=== PATIENT | female | born 1935 | race Caucasian/White ===

== ENCOUNTER 2016-06-23 10:30 | Observation (INO) | payer MEDICARE, OTHER ==
[2016-06-23] MEDS ORDERED: diPHENhydraMINE PO* 25 MG ONE (11:44)
[2016-06-23] MEDS ORDERED: Diazepam TAB(*) 5 MG ONE (11:44)
[2016-06-23] MEDS ORDERED: fentaNYL* 50 MCG/ML 2 ML VIAL (100 MCG VIAL) ONE (11:55)
[2016-06-23] MEDS ORDERED: Iohexol 350 (CONTRAST) 200 ML MDV IV ONE ×2 (11:55→12:48)
[2016-06-23] MEDS ORDERED: Midazolam* 1 MG/ML 5 ML VIAL (5 MG) ONE (11:55)
[2016-06-23] MEDS ORDERED: Heparin 2 UNITS/ML IVPREMIX* 3,000 ML IV ONE (11:56)
[2016-06-23] MEDS ORDERED: Lidocaine 1% INJ* 10 MG/ML 30 ML SDV ONE (11:56)
[2016-06-23] MEDS ORDERED: nitroGLYCERIN DRIP* 250 ML ONE (12:48)
[2016-06-23] MEDS ORDERED: Ticagrelor* 90 MG TAB PO ONE (13:16)
[2016-06-23] MEDS ORDERED: Aspirin Low Dose CHEW TAB* 81 MG ONE (13:18)
[2016-06-23] MEDS ORDERED: Atropine SYRINGE* 0.1 MG/ML 10 ML SYRINGE (1 MG) ONE (13:34)
[2016-06-23] MEDS ORDERED: Heparin(*) 1000 UNIT/ML 10 ML VIAL CATH LAB IV ONE (13:34)
[2016-06-23] MEDS ORDERED: Nitroglycerin TAB 0.4 MG* 0.4 MG TAB SL PRN (13:50)
[2016-06-23] MEDS ORDERED: NS 0.9% 1000 ML* 1,000 ML IV SCH (14:00)
[2016-06-23] MEDS ORDERED: Midazolam* 1 MG/ML 2 ML VIAL (2 MG) IV ONE (16:00)
[2016-06-23] MEDS ORDERED: ALPRAZolam TAB* 0.25 MG PO PRN (17:21)
[2016-06-23] MEDS: Ticagrelor* 90 MG TAB PO SCH (21:07)
[2016-06-24 06:03] LABS: Hematocrit 39 % (35-47); Hemoglobin 12.6 g/dl (12.0-16.0); Mean Corpuscular HGB Conc 32 g/dl (31-36); Mean Corpuscular Hemoglobin 25 pg (27-31); Mean Corpuscular Volume 79 fL (80-97); Mean Platelet Volume 9 um3 (7.4-10.4); Red Blood Count 4.96 10^6/ul (4.0-5.4); Red Cell Distribution Width 16 % (10.5-15); White Blood Count 19.7 10^3/ul (3.5-10.8)
[2016-06-24 06:16] LABS: BUN/Creatinine Ratio 21.4 (8-20); Calcium 9.2 mg/dL (8.6-10.3); EGFR African American 134.6 (>60); EGFR Non-African American 104.7 (>60); Potassium 3.4 mmol/L (3.5-5.0)
[2016-06-24] MEDS ORDERED: Aspirin EC Low Dose* 81 MG TAB.EC PO SCH (09:00)
[2016-06-24] MEDS ORDERED: Atorvastatin* 20 MG TAB PO SCH (09:00)
[2016-06-24] MEDS ORDERED: amLODIPine TAB* 5 MG PO SCH (09:00)
[2016-06-24] MEDS ORDERED: Atenolol TAB* 25 MG PO SCH (09:00)
[2016-06-24] MEDS: Ticagrelor* 90 MG TAB PO SCH (09:01)
[2016-06-24 10:11] VITALS: BP 108/45
--- NOTE | 2016-06-24 12:29 | CATH ---
CC: Dr. Donald Fay, [place], [place]. CARDIAC CATHETERIZATION: DATE OF : 37. DATE OF VISIT: 06/23/16. PROCEDURE: Cardiac catheterization including left heart catheterization, coronary angiography, left ventriculogram. The patient is a 80-year-old female with a history of hypertension and diabetes, who has been experi encing anginal type chest pain for approximately 2 months. She was admitted to [facility] in April with typical anginal symptoms. She underwent a stress test, which showed a mild to mod erate area of ischemia to her lateral wall. The patient was started on anti-ischemic medications an d was seen in followup. I saw the patient last week. He continued to have chest pain with exertion , typical of angina. Cardiac catheterization was recommended. DESCRIPTION OF PROCEDURE: The patient was brought to the cardiac catheterization lab in a fasting s rollins. Informed consent have been obtained prior to procedure. All labs were reviewed. The patient was placed supine in the catheterization table. Both femoral areas were cleaned and draped in usual fashion. 1% lidocaine was used for local anesthesia. The right femoral artery was entered by a mo dified Seldinger technique and a 6 Iraqi sheath introducer was placed. The patient underwent a lef t ventriculogram coronary angiography using a 6 Iraqi pigtail catheter, 6 Iraqi JL4 catheter, and a 6 Iraqi JR4 catheter. At the end of the procedure, the patient went on to do an angioplasty and stenting of her left circumflex artery. Please see Dr. Edmonds' dictation for those details. The pa tient tolerated the procedure well with no complications. A total of 65 mL of Omnipaque dye was used . A total of 2 minutes of floral time was used. FINDINGS: 1. Hemodynamics, central aortic blood pressure 149/68 with a mean of 105, left ventricul ar pressure 150/5 with an end diastolic pressure of 18. 2. Left ventriculogram. Left ventricle was normal in size and systolic function. Estimated ejectio n fraction 65%. There were no focal wall motion abnormalities. There was 1+ mitral regurgitation. Aortic valve and ascending aorta appeared normal. 3. Coronary arteries. 1. Left main: The left main was normal in size. It trifurcated into the LAD, ramus artery and cir cumflex artery. The distal LAD had an eccentric 20% stenosis. 2. Left anterior descending artery. The LAD was normal in size. It gave off one diagonal vessel. There was no significant stenosis. 3. Ramus artery. The ramus artery was a moderate sized vessel. There is no evidence of stenosis. Left circumflex artery: The circumflex artery was a large dominant vessel, given off the PDA. It h ad 3 obtuse marginal branches. The proximal left circumflex artery had an eccentric 95% stenosis. The remainder of the vessel is without disease. Right coronary. The RCA was a small nondominant vessel. The mid portion of the right coronary maureen ry had an eccentric 60% stenosis. There is no other evidence of disease. IMPRESSION: 1. Normal LV size with systolic function. 2. Critical 95% stenosis to the proximal left circumflex artery. 3. Eccentric 60% stenosis to the mid right coronary artery. RECOMMENDATION: The patient will undergo angioplasty and stenting to the left circumflex artery. T he patient will be seen in followup. [id number]/[facility] #: [id number]
--- NOTE | 2016-06-24 21:52 | DS ---
DISCHARGE SUMMARY: DATE OF ADMISSION: 06/23/16 DATE OF DISCHARGE: 06/24/16 PROCEDURE: Cardiac catheterization with stent implantation to her left circumflex artery. DISPOSITION ON DISCHARGE: Home. HISTORY OF PRESENT ILLNESS: The patient is a 80-year-old woman with a history of diabetes, who was having anginal-type chest pain. The patient had an abnormal stress test in April. The patient was placed on maximum medical therapy. Despite that, the patient continued to have chest pain with exertion. Cardiac catheterization was recommended, please see my admission history and physical for details of her presentation and presentation of medications. SUMMARY OF HOSPITAL COURSE: The patient was brought to the cardiac catheterization lab for cardiac catheterization. The cardiac catheterization demonstrated that her left ventriculogram was normal in size and systolic function. She had 1+ mitral regurgitation. Coronary arteries demonstrated a critical stenosis of her proximal left circumflex artery, had a 95% stenosis. The patient had a 60% stenosis to her mid right coronary artery. The right coronary artery was a small nondominant vessel. There is no other coronary artery disease. The patient underwent stent implantation to her left circumflex artery. She had a 4 mm x 12 mm drug-eluting stent placed by Dr. Yola Edmonds, please see his report for details of her procedure. The patient was observed overnight. She had no complications overnight. The patient is awake, alert, and oriented. She has no complaints. The patient will be discharged home. PHYSICAL EXAMINATION: Height is 5 feet 2 inches, weight 205 pounds. Heart rate is 93, blood pressure 108/54, respiratory rate is 24, oxygen saturation 97 % on room air, temperature 98.3. Carotids are 2+ without bruits. Cardiac Exam : S1 and S2 without any murmurs, rubs, or gallops. Lungs: Clear to auscultation. There is no dullness to percussion. Extremities: Show no edema. She has 2+ pulses in her dorsalis pedis and popliteal bilaterally. Her cardiac cath shows a moderate-sized hematoma in her skin. Her artery itself has no bruit on exam. She has normal pulses. LABORATORY DATA: Chemistries within normal limits. BUN 12, creatinine 0.5. White count shows 19.7, hemoglobin and hematocrit are stable at 12 and 39, platelet count 248. DISPOSITION: The patient will be discharged home. DISCHARGE MEDICATIONS: 1. Aspirin 81 mg a day. 2. Atenolol 25 mg b.i.d. 3. Atorvastatin 40 mg once a day. 4. Nitroglycerin p.r.n. 5. Brilinta 90 mg b.i.d. 6. Metformin 1000 mg b.i.d. 7. Januvia 100 mg daily. 8. Losartan 50 mg daily. 9. Amlodipine 5 mg a day. 10. Nystatin powder as directed. 11. Omeprazole 20 mg a day. ALLERGIES: To PENICILLIN. FOLLOWUP: The patient has a followup appointment with me at [facility] on July 03 at 11:15 in the morning. CC: Dr. Yola Edmonds; [facility] [id number]/[facility] #: [id number] [facility]
--- NOTE | 2016-06-25 01:56 | CATH ---
STENT REPORT: DATE OF PROCEDURE: 06/23/16 - ROOM #ICU-12 PRIMARY CARE PHYSICIANS: Dr. Fay in [place], Wilner Chua MD. PROCEDURE: Diagnostic catheterization by Dr. Chua, stent placement circumflex Dr. Edmonds on 06/23/16, 4.0 x 12 Synergy drug-eluting stent, Angio-Seal right common femoral artery. HISTORY: A 80-year-old woman with unstable angina, stress imaging with inferolateral ischemia. Diagnostic cath by Dr. Chua demonstrated high-grade proximal circumflex stenosis. I was asked to perform intervention. INTERVENTION MEDICATIONS: 1. Heparin 6000 units IV. 2. Brilinta 180 mg p.o. 3. Aspirin 81 mg p.o. 4. Atropine 1 mg IV. GUIDING CATHETER: A 6-FL BU 3.5, wire 14 BMW used to deploy a 4.0 x 12 Synergy drug-eluting stent, proximal circumflex 13 atmospheres at 30 seconds. After stent deployment, she had transient bradycardia and hypotension concomitant with slow flow in the SA kingsley artery, which normalized with volume and atropine. HEMODYNAMICS: For the diagnostic portion, see Dr. Chua's report. Final noninvasive pressure 112/66. ANGIOGRAPHY: For the diagnostic portion, see Dr. Chua's report. The left main has an inferior distal 30% stenosis. The circumflex is large, codominant, has a proximal 90% to 95% stenosis before a large bifurcated marginal branch, several posterolaterals and the circumflex PDA. The SA kingsley artery arises just proximal to the stenosis. After stent placement, there is no residual stenosis, there is DIEGO-3 flow, there is slow flow in the SA kingsley artery. CONCLUSION: Successful drug-eluting stent placement in the proximal circumflex , excellent angiographic result with drug-eluting stent placement. Angio-Seal right common femoral artery, requiring manual compression because of continued oozing. Coronary angiogram showed a somewhat low entry point, but above the bifurcation. CC: Dr. Fay; Wilner Cuha MD* [id number]/[facility] #: [id number] [facility]
== END 2016-06-24 10:50 | disposition home or self-care (01) ==
LOC: CHICATH 10:30 → ICU 14:26
PROVIDERS: ADMIT Specialist; ATTEND Specialist
DX: I25.110 Atherosclerotic heart disease of native coronary artery with unstable angina pectoris (principal); I10 Essential (primary) hypertension; E11.9 Type 2 diabetes mellitus without complications; Z79.84 Long term (current) use of oral hypoglycemic drugs; Z88.0 Allergy status to penicillin; R94.31 Abnormal electrocardiogram [ECG] [EKG]; I25.9 Chronic ischemic heart disease, unspecified
CPT/HCPCS: 36415; 80048; 85025; 87641; 93005; 93458; A9270-GY; C1760; C1769; C1876; C1887; C9600-LC; G0378; J0461; J1644; J2250; J3010

== ENCOUNTER 2017-05-01 06:15 | Inpatient (IN) | payer MEDICARE, OTHER ==
[2017-05-01 07:38] LABS: ABS Basophils 0.1 10^3/ul (0-0.2); ABS Eosinophils 0.4 10^3/ul (0-0.6); ABS Lymphocytes 2.4 10^3/ul (1.0-4.8); ABS Monocytes 0.9 10^3/ul (0-0.8); ABS Neutrophils 10.3 10^3/ul (1.5-7.7); ABS Nucleated RBC 0 10^3/ul; Eosinophil % 2.8 % (0-6); Hematocrit 32 % (35-47); Hemoglobin 10.4 g/dl (12.0-16.0); Mean Corpuscular HGB Conc 32 g/dl (31-36); Mean Corpuscular Hemoglobin 26 pg (27-31); Mean Corpuscular Volume 81 fL (80-97); Mean Platelet Volume 9 um3 (7.4-10.4); Nucleated Red Blood Cells % 0; Platelet Count 279 10^3/ul (150-450); Red Blood Count 3.95 10^6/ul (4.0-5.4); Red Cell Distribution Width 15 % (10.5-15); White Blood Count 14.1 10^3/ul (3.5-10.8)
[2017-05-01 07:47] LABS: INR 0.92 (0.77-1.02)
[2017-05-01 07:51] LABS: EGFR Non-African American 91.2 (>60)
[2017-05-01] MEDS ORDERED: NS 0.9% 1000 ML* 1,000 ML IV ONE (09:00)
--- NOTE | 2017-05-01 09:21 | RAD ---
INDICATION: 81-year-old with vaginal bleeding COMPARISON: None TECHNIQUE: Longitudinal and transverse transvaginal scans of the pelvis were obtained. FINDINGS: Uterus: The uterus is mildly enlarged measuring 10.8 x 5.1 x 5.9 cm. Endometrial thickness: The endometrium is thickened with complex fluid. Measurements of 3.7 cm are obtained Free fluid: There is no significant free fluid . Ovaries: Neither ovary is identified as a discrete structure. This is likely age-related. There is no adnexal mass identified. Other: None IMPRESSION: MILDLY ENLARGED UTERUS WITH MARKEDLY THICKENED ENDOMETRIUM. SUGGEST GYNECOLOGIC REFERRAL FOR FURTHER EVALUATION OF POSTMENOPAUSAL BLEEDING.
[2017-05-01 09:45] LABS: Hematocrit 29 % (35-47); Hemoglobin 9.2 g/dl (12.0-16.0); Mean Corpuscular HGB Conc 32 g/dl (31-36); Mean Corpuscular Hemoglobin 26 pg (27-31); Mean Corpuscular Volume 82 fL (80-97); Mean Platelet Volume 9 um3 (7.4-10.4); Platelet Count 227 10^3/ul (150-450); Red Blood Count 3.55 10^6/ul (4.0-5.4); Red Cell Distribution Width 15 % (10.5-15); White Blood Count 12.3 10^3/ul (3.5-10.8)
[2017-05-01] MEDS ORDERED: Dextrose 50% Syringe 50 ML* 25 GM/50 ML SYRINGE IV PUSH PRN (10:58)
--- NOTE | 2017-05-01 12:26 | PN ---
Progress Note - Progress Note Date of Service: 05/01/17 Note: 81 yo with sudden onset of vaginal bleeding . no too heavy yesterday but heavy today. seen at [place] and sent here for stabilization d/w ER and will need to be stabilized on medical service. u/s reviewed and endometrium thickened would start megace and do endometrial biopsy as soon as able once she is stabilized.\ will d/w medical service Jimmy Crowley mD
[2017-05-01] MEDS ORDERED: Megestrol TAB* 40 MG PO ONE (13:38)
[2017-05-01] MEDS: Insulin LISPRO* 1 UNITS UNIT SUBCUT SCH ×3 (13:41→20:14)
--- NOTE | 2017-05-01 14:45 | RAD ---
HISTORY: Follow-up history of DVT TECHNIQUE: Multiple transverse and longitudinal ultrasound images were obtained of the veins of the right lower extremity using grayscale, color Doppler, and spectral Doppler imaging with and without compression and with augmentation. FINDINGS: VEINS: The common femoral vein, deep femoral vein, femoral vein and popliteal vein are compressible throughout their course, with normal flow on color Doppler imaging and normal response to augmentation on spectral Doppler imaging. SOFT TISSUES: Grossly normal. No large popliteal fossa cyst was identified. IMPRESSION: No sonographic evidence of deep vein thrombosis.
--- NOTE | 2017-05-01 15:15 | HP ---
CC: Dr. Magan Fay * HISTORY AND PHYSICAL: DATE OF ADMISSION: 05/01/17 PRIMARY CARE PROVIDER: Dr. Magan Fay. CHIEF COMPLAINT: Vaginal bleeding. HISTORY OF PRESENT ILLNESS: Ms. Cuevas is a 81-year-old female who has a history of type 2 diabetes, coronary artery disease status post drug-eluting stent placement in June 2016, hypertension, and hyperlipidemia who presents to the emergency room with complaints of vaginal bleeding. The patient initially presented to [facility] and was transferred to [facility] for further evaluation and management. The patient has a slightly difficult time providing history to me at this point. Her son states that approximately 3 days ago, she began to complain of vaginal bleeding. The patient is able to tell me that she has been needing to use 4 to 5 pads per day. These are generally saturated. In addition, she has been passing blood clots. In the emergency room, the patient reportedly passed a blood clot the size of a softball. The patient underwent transvaginal ultrasound and at that time started to develop lightheaded-ness and shortness of breath. The patient states lightheadedness has now improved, but she does have some mild shortness of breath still. The patient denies any abdominal pain. She denies any cramping. She denies any nausea or vomiting. She denies any chest pain. She does state that she has felt chills since being in the emergency room. Of note , the patient is on both, full strength aspirin and Brilinta secondary to her drug-eluting stent placed in June of this year. The patient denies any recent NSAID use. PAST MEDICAL HISTORY: 1. Coronary artery disease, status post drug-eluting stent, June 2016. 2. Type 2 diabetes. 3. Hypertension. 4. Hyperlipidemia. PAST SURGICAL HISTORY: None. MEDICATIONS: 1. Aspirin 325 mg p.o. daily. 2. Amlodipine 5 mg p.o. daily. 3. Lipitor 80 mg p.o. daily. 4. Atenolol 25 mg p.o. twice daily. 5. Nystatin powder, applied topically 3 times daily. 6. Nitroglycerin 0.4 mg q.5 minutes p.r.n. chest pain. 7. Losartan 50 mg p.o. daily. 8. Brilinta 90 mg p.o. twice daily. 9. Januvia 100 mg p.o. daily. 10. Metformin 1000 mg p.o. twice daily. ALLERGIES: PENICILLIN. FAMILY HISTORY: Her mom at the age of 68 of an DE. Dad in his early 70s of an DE. SOCIAL HISTORY: The patient is a lifelong nonsmoker. She does not drink alcohol. She worked doing housekeeping. She is . She has 4 children. She indicates that her son, Evaristo Cordero, phone number [phone], is her healthcare proxy. REVIEW OF SYSTEMS: A complete 11-system review of systems is obtained. Pertinent positives and negatives are as per HPI. In addition, the patient complains of loose stools over the last couple of days. PHYSICAL EXAMINATION GENERAL: The patient is a well-developed, obese, elderly female, sitting up in the stretcher, in no acute distress. VITAL SIGNS: Blood pressure 115/101, pulse 99, respirations 18, temp 98.2, O2 sat 96% on room air. HEENT: Pupils are equal, they are round. Extraocular muscles are intact. Oropharynx is clear. Oral mucosa is moist. The patient wears upper and lower dentures. There is no submandibular, cervical, or supraclavicular adenopathy. Thyroid is not enlarged. No thyroid nodules are noted. PULMONARY: Lungs are clear to auscultation bilaterally. CARDIAC: Normal S1, S2. Regular rate and rhythm. I do not appreciate any murmurs. The right calf appears to be more swollen compared to the left. ABDOMEN: Bowel sounds present. Abdomen is soft, nontender, nondistended. MUSCULOSKELETAL: There is no cyanosis or clubbing of the digits. There is full active range of motion of all 4 extremities. NEUROLOGIC: Cranial nerves II through XII are grossly intact. Sensation is intact to light touch throughout. Strength is 5/5 to both upper and lower extremities bilaterally. SKIN: Warm and dry. There are no rashes. PSYCH: The patient is alert. She is oriented x3. Affect is appropriate. LABORATORY DATA: WBC 12.3, hemoglobin 9.2, hematocrit 29, platelets 227,000. INR 0.92. Sodium 140, potassium 3.9, chloride 106, CO2 of 24, BUN 16, creatinine 0.63, glucose 157, calcium 9.3. Bilirubin 0.4, AST 11, ALT 9, alk phos 91. CRP 9.16. Albumin 3.9. Transvaginal ultrasound reveals a mildly enlarged uterus with markedly thickened endometrium. ASSESSMENT AND PLAN: Ms. Cuevas is a 81-year-old female with history of coronary artery disease, type 2 diabetes, hypertension, and hyperlipidemia, who is on both full strength aspirin and Brilinta since June of this year, who presents to emergency room with complaints of significant vaginal bleeding, now associated with lightheadedness and shortness of breath. 1. Vaginal bleeding. The patient will need to be evaluated by Gynecology. Dr. Crowley has been called by the emergency room and will see the patient in consultation. The patient will have her Brilinta and aspirin held at this point due to the significant bleeding. 2. Acute blood loss anemia. The patient's hemoglobin on 04/15/17 was normal at 13.1. At 7:15 on the day of admission, the patient's hemoglobin was 10.4 and at 9:22 on the day of admission, the patient's hemoglobin had dropped to 9.2. The patient will be receiving 2 units of packed red blood cells as ordered by the emergency room physician. A followup hemoglobin and hematocrit will be obtained at 1 p.m. Subsequent hemoglobin and hematocrits will be obtained every 6 hours. 3. Coronary artery disease. The patient is chest pain free at this point. She will continue on her Lipitor; however, at this point, I am holding her beta - tamika, her aspirin, and her Brilinta due to her significant bleeding and complaints of lightheadedness and intermittent relative hypotension. The patient will need to be monitored for any signs of active coronary artery disease. 4. Type 2 diabetes. The patient's metformin and Januvia will be held for now. She will be placed on a Lispro sliding scale with fingersticks a.c. and h.s. 5. Hypertension. The patient's blood pressure at this point is under acceptable control. I am holding all of her antihypertensives; however, if she begins to become hypertensive, we will consider adding back her beta-tamika first. 6. Hyperlipidemia. Continue Lipitor. 7. DVT prophylaxis. According to the Adult Thrombosis Prophylaxis Risk Factor Assessment Guide, the patient has a total risk factor score of 4, making her a high risk. SCDs alone will be utilized as DVT prophylaxis given her vaginal bleeding. 8. Code status is full and, again, the patient indicates that her son, Evaristo Cordero, is her healthcare proxy. TIME SPENT: 65 minutes were spent admitting this patient. [id number]/[facility] #: [id number] [place]
[2017-05-01] MEDS: Megestrol TAB* 40 MG PO SCH ×2 (17:19→20:15)
[2017-05-01] MEDS: NS 0.9% 1000 ML* 1,000 ML IV SCH (19:57)
[2017-05-01 21:19] LABS: Hematocrit 32 % (35-47); Hemoglobin 10.8 g/dl (12.0-16.0)
[2017-05-01 23:33] LABS: Urine Appearance Cloudy; Urine Blood 3+ (Negative); Urine Color Yellow; Urine Ketones Negative (Negative); Urine Protein 1+(30 mg/dL) (Negative); Urine Specific Gravity 1.013 (1.010-1.030); Urine Urobilinogen Negative (Negative)
[2017-05-02 03:36] LABS: Hematocrit 30 % (35-47); Hemoglobin 10.1 g/dl (12.0-16.0)
[2017-05-02 03:56] LABS: EGFR Non-African American 111.3 (>60)
[2017-05-02] MEDS: NS 0.9% 1000 ML* 1,000 ML IV SCH (04:28)
[2017-05-02 06:21] LABS: Hematocrit 32 % (35-47); Hemoglobin 10.7 g/dl (12.0-16.0); Mean Corpuscular HGB Conc 34 g/dl (31-36); Mean Corpuscular Hemoglobin 27 pg (27-31); Mean Corpuscular Volume 81 fL (80-97); Mean Platelet Volume 8 um3 (7.4-10.4); Platelet Count 224 10^3/ul (150-450); Red Blood Count 3.97 10^6/ul (4.0-5.4); Red Cell Distribution Width 15 % (10.5-15); White Blood Count 10.2 10^3/ul (3.5-10.8)
[2017-05-02 07:58] VITALS: BP 137/65
[2017-05-02] MEDS: Insulin LISPRO* 1 UNITS UNIT SUBCUT SCH ×2 (08:47→12:32)
[2017-05-02] MEDS: Megestrol TAB* 40 MG PO SCH (08:47)
[2017-05-02] MEDS ORDERED: Atorvastatin* 80 MG TAB PO SCH (09:00)
[2017-05-02 09:19] LABS: Hematocrit 32 % (35-47); Hemoglobin 10.8 g/dl (12.0-16.0)
--- NOTE | 2017-05-02 11:20 | PN ---
Subjective Date of Service: 05/02/17 Interval History: Pt is feeling well. She denies any chest pain or SOB. She has no lightheadedness. She states that the vaginal bleeding is minimal at this time. She would like to go home. Objective Active Medications: Atorvastatin Calcium (Lipitor*) 80 mg PO DAILY [facility] Last Admin: 05/02/17 08:47 Dose: 80 mg Dextrose (D50w Syringe 50 Ml*) 12.5 gm IV PUSH .FOR FS < 60 - SS PRN PRN Reason: FS < 60 Sodium Chloride (Ns 0.9% 1000 Ml*) 1,000 mls @ 125 mls/hr IV PER RATE [facility] Last Admin: 05/02/17 04:28 Dose: 125 mls/hr Insulin Human Lispro (Humalog*) 0 units SUBCUT ACHS [facility] PRN Reason: Protocol Last Admin: 05/02/17 08:47 Dose: 2 units Megestrol Acetate (Megace Tab*) 40 mg PO QID [facility] Last Admin: 05/02/17 08:47 Dose: 40 mg Vital Signs - 8 hr 05/02/17 05/02/17 07:33 07:58 Temperature 98.0 F Pulse Rate 92 Respiratory 20 24 Rate Blood Pressure 137/65 (mmHg) O2 Sat by Pulse 97 Oximetry Oxygen Devices in Use Now: None Appearance: Elderly female sitting in a chair, NAD Eyes: No Scleral Icterus Ears/Nose/Mouth/Throat: Mucous Membranes Moist Respiratory: Symmetrical Chest Expansion and Respiratory Effort, Clear to Auscultation Cardiovascular: NL Sounds; No Murmurs; No JVD, RRR, - - trace LE edema Abdominal: NL Sounds; No Tenderness; No Distention Extremities: No Clubbing, Cyanosis Skin: No Nodules or Sclerosis Neurological: Alert and Oriented x 3 Result Diagrams: 05/02/17 09:11 05/02/17 03:16 Assess/Plan/Problems-Billing Ms Cuevas is a 81 yo F who has a h/o type II DM, CAD on ASA and brilinta who presented to the ER at [facility] with c/o vaginal bleeding and was sent to [facility] for further evaluation and treatment. - Patient Problems (1) Vaginal bleeding Current Visit: Yes Status: Acute Code(s): N93.9 - ABNORMAL UTERINE AND VAGINAL BLEEDING, UNSPECIFIED SNOMED Code(s): 447843185 Comment: Thickened endometrium identified on transvaginal US. She has been started on megace per Dr. Crowley. She has had a dramatic improvement in her bleeding since last evening. Will ask for follow up H/H 05/06/17. She will need to follow up with Dr. Crowley in the next 4-7 days for an exam and endometrial biopsy. (2) Acute blood loss anemia Current Visit: Yes Status: Acute Code(s): D62 - ACUTE POSTHEMORRHAGIC ANEMIA SNOMED Code(s): 051579202 Comment: H/H stable after 2 units PRBC. (3) CAD (coronary artery disease) Current Visit: Yes Status: Acute Code(s): I25.10 - ATHSCL HEART DISEASE OF [place] CORONARY ARTERY W/O ANG PCTRS SNOMED Code(s): 90799645 Comment: No c/o chest pain. Will resume ASA but only 81mg. Hold brilinta for now. This should be resumed once her vaginal bleeding has been fully addressed. (4) DM type 2 (diabetes mellitus, type 2) Current Visit: Yes Status: Acute Comment: Sugars have been under good control on just a lispro sliding scale. Resume home medications. (5) DVT prophylaxis Current Visit: Yes Status: Acute Code(s): TKA9864 - SNOMED Code(s): 762863105 Comment: SCDs alone secondary to vaginal bleeding (6) Full code status Current Visit: Yes Status: Acute Code(s): Z78.9 - OTHER SPECIFIED HEALTH STATUS SNOMED Code(s): 904426492 Status and Disposition: d/c home
--- NOTE | 2017-05-06 21:32 | ED ---
Xander Bergeron Tecjoon, scribjennifer for Neva Perla MD on 05/01/17 at 0652 . GI/ HPI - HPI Summary HPI Summary: This patient is a 81 year old female transferred from [place] by ambulance to [facility] accompanied by family with a chief complaint of vaginal bleeding since 3 days ago. Patient states that it is not a lot of blood, but this morning, she had a great big blood clot. The pain is rated 0/10 in severity. Symptoms aggravated by nothing. Symptoms alleviated by nothing. Patient denies pain and states that she did not experience syncope or even feel dizzy. - History of Current Complaint Chief Complaint: EDBleedingDisorder Time Seen by Provider: 05/01/17 06:22 Stated Complaint: ANEMIA Hx Obtained From: Patient Onset/Duration: Started Days Ago - 3, Still Present Timing: Constant Current Severity: Moderate Vaginal Bleeding Description: Clots Pain Intensity: 0 Associated Signs and Symptoms: Positive: Negative - abd pain - Additional Pertinent History Primary Care Physician: SHAY - Allergy/Home Medications Allergies/Adverse Reactions: Allergies Allergy/AdvReac Type Severity Reaction Status Date / Time Penicillins [PCN] Allergy Hives Verified 05/01/17 06:22 PMH/Surg Hx/FS Hx/Imm Hx Previously Healthy: No Endocrine/Hematology History: Reports: Hx Diabetes Denies: Hx Thyroid Disease Cardiovascular History: Reports: Hx Congestive Heart Failure, Hx Hypercholesterolemia, Hx Hypertension Denies: Hx Angina, Hx Coronary Artery Disease, Hx Myocardial Infarction, Hx Peripheral Vascular Disease, Hx Valvular Heart Disease Respiratory History: Reports: Hx Asthma, Hx Pneumonia Denies: Hx Chronic Obstructive Pulmonary Disease (COPD) History: Reports: Other Problems/Disorders - UTI Musculoskeletal History: Denies: Hx Osteoporosis Sensory History: Reports: Hx Contacts or Glasses, Hx Vision Problem Denies: Hx Cataracts, Hx Glaucoma Opthamlomology History: Reports: Hx Contacts or Glasses, Hx Vision Problem Denies: Hx Cataracts, Hx Glaucoma Neurological History: Denies: Hx Headaches, Hx Seizures, Hx Transient Ischemic Attacks (TIA) - Immunization History Date of Tetanus Vaccine: utd Date of Influenza Vaccine: 2016 Infectious Disease History: Yes Infectious Disease History: Denies: Hx Clostridium Difficile, Hx Hepatitis, Hx Human Immunodeficiency Virus (HIV), Hx of Known/Suspected MRSA, Hx Shingles, Hx Tuberculosis, History Other Infectious Disease, Traveled Outside the [place] in Last 30 Days - Family History Known Family History: Positive: Other - non contributory Negative: Cardiac Disease - Social History Occupation: Retired Alcohol Use: None Hx Substance Use: No Substance Use Type: Reports: None Hx Tobacco Use: No Smoking Status (MU): Never Smoked Tobacco Review of Systems Negative: Abdominal Pain Positive: other - vaginal bleeding Negative: Syncope All Other Systems Reviewed And Are Negative: Yes Physical Exam - Summary Physical Exam Summary: VITAL SIGNS: Reviewed. GENERAL: Patient is a morbidly obese female who is lying comfortable in the stretcher. Patient is not in any acute respiratory distress. HEAD AND FACE: No signs of trauma. No ecchymosis, hematomas or skull depressions. No sinus tenderness. EYES: PERRLA, EOMI x 2, No injected conjunctiva, no nystagmus. EARS: Hearing grossly intact. Ear canals and tympanic membranes are within normal limits. MOUTH: Oropharynx within normal limits. NECK: Supple, trachea is midline, no adenopathy, no JVD, no carotid bruit, no c- spine tenderness, neck with full ROM. CHEST: Symmetric, no tenderness at palpation LUNGS: Clear to auscultation bilaterally. No wheezing or crackles. CVS: Regular rate and rhythm, S1 and S2 present, no murmurs or gallops appreciated. ABDOMEN: Soft, non-tender. No signs of distention. No rebound no guarding, and no masses palpated. Bowel sounds are normal. EXTREMITIES: FROM in all major joints, no edema, no cyanosis or clubbing. NEURO: Alert and oriented x 3. No acute neurological deficits. Speech is normal and follows commands. Patient denies syncope, no dizziness SKIN: Dry and warm Triage Information Reviewed: Yes Vital Signs On Initial Exam: Initial Vitals Temp Pulse Resp BP Pulse Ox 98.2 F 97 17 141/60 96 05/01/17 06:21 05/01/17 06:21 05/01/17 06:21 05/01/17 06:21 05/01/17 06:21 Vital Signs Reviewed: Yes - [place] Coma Scale Coma Scale Total: 15 Diagnostics - Vital Signs Vital Signs Temp Pulse Resp BP Pulse Ox 05/01/17 06:34 101 19 97 05/01/17 06:21 98.2 F 97 17 141/60 96 - Laboratory Lab Results: Lab Results 05/01/17 05/01/17 05/01/17 Range/Units 07:15 07:15 07:15 WBC 14.1 H (3.5-10.8) 10^3/ul RBC 3.95 L (4.0-5.4) 10^6/ul Hgb 10.4 L (12.0-16.0) g/dl Hct 32 L (35-47) % MCV 81 (80-97) fL MCH 26 L (27-31) pg MCHC 32 (31-36) g/dl RDW 15 (10.5-15) % Plt Count 279 (150-450) 10^3/ul MPV 9 (7.4-10.4) um3 Neut % (Auto) 73.3 (38-83) % Lymph % (Auto) 17.0 L (25-47) % [place] % (Auto) 6.1 (1-9) % Eos % (Auto) 2.8 (0-6) % Baso % (Auto) 0.8 (0-2) % Absolute Neuts (auto) 10.3 H (1.5-7.7) 10^3/ul Absolute Lymphs (auto) 2.4 (1.0-4.8) 10^3/ul Absolute Monos (auto) 0.9 H (0-0.8) 10^3/ul Absolute Eos (auto) 0.4 (0-0.6) 10^3/ul Absolute Basos (auto) 0.1 (0-0.2) 10^3/ul Absolute Nucleated RBC 0 10^3/ul Nucleated RBC % 0 INR (Anticoag Therapy) 0.92 (0.77-1.02) APTT 28.1 (26.0-36.3) seconds Sodium 140 (133-145) mmol/L Potassium 3.9 (3.5-5.0) mmol/L Chloride 106 (101-111) mmol/L Carbon Dioxide 24 (22-32) mmol/L Anion Gap 10 (2-11) mmol/L BUN 16 (6-24) mg/dL Creatinine 0.63 (0.51-0.95) mg/dL Est GFR ( Amer) 117.2 (>60) Est GFR (Non-Af Amer) 91.2 (>60) BUN/Creatinine Ratio 25.4 H (8-20) Glucose 157 H (70-100) mg/dL Calcium 9.3 (8.6-10.3) mg/dL Total Bilirubin 0.40 (0.2-1.0) mg/dL AST 11 L (13-39) U/L ALT 9 (7-52) U/L Alkaline Phosphatase 91 (34-104) U/L C-Reactive Protein 9.16 H (< 5.00) mg/L Total Protein 7.0 (6.4-8.9) g/dL Albumin 3.9 (3.2-5.2) g/dL Globulin 3.1 (2-4) g/dL Albumin/Globulin Ratio 1.3 (1-3) Blood Type Antibody Screen Crossmatch 05/01/17 05/01/17 Range/Units 07:15 09:22 WBC 12.3 H (3.5-10.8) 10^3/ul RBC 3.55 L (4.0-5.4) 10^6/ul Hgb 9.2 L (12.0-16.0) g/dl Hct 29 L (35-47) % MCV 82 (80-97) fL MCH 26 L (27-31) pg MCHC 32 (31-36) g/dl RDW 15 (10.5-15) % Plt Count 227 (150-450) 10^3/ul MPV 9 (7.4-10.4) um3 Neut % (Auto) (38-83) % Lymph % (Auto) (25-47) % [place] % (Auto) (1-9) % Eos % (Auto) (0-6) % Baso % (Auto) (0-2) % Absolute Neuts (auto) (1.5-7.7) 10^3/ul Absolute Lymphs (auto) (1.0-4.8) 10^3/ul Absolute Monos (auto) (0-0.8) 10^3/ul Absolute Eos (auto) (0-0.6) 10^3/ul Absolute Basos (auto) (0-0.2) 10^3/ul Absolute Nucleated RBC 10^3/ul Nucleated RBC % INR (Anticoag Therapy) (0.77-1.02) APTT (26.0-36.3) seconds Sodium (133-145) mmol/L Potassium (3.5-5.0) mmol/L Chloride (101-111) mmol/L Carbon Dioxide (22-32) mmol/L Anion Gap (2-11) mmol/L BUN (6-24) mg/dL Creatinine (0.51-0.95) mg/dL Est GFR ( Amer) (>60) Est GFR (Non-Af Amer) (>60) BUN/Creatinine Ratio (8-20) Glucose (70-100) mg/dL Calcium (8.6-10.3) mg/dL Total Bilirubin (0.2-1.0) mg/dL AST (13-39) U/L ALT (7-52) U/L Alkaline Phosphatase (34-104) U/L C-Reactive Protein (< 5.00) mg/L Total Protein (6.4-8.9) g/dL Albumin (3.2-5.2) g/dL Globulin (2-4) g/dL Albumin/Globulin Ratio (1-3) Blood Type O Positive Antibody Screen Negative Crossmatch See Detail Result Diagrams: 05/02/17 09:11 05/02/17 03:16 Lab Statement: Any lab studies that have been ordered have been reviewed, and results considered in the medical decision making process. GIGU Course/Dx - Course Course Of Treatment: This patient is a 81 year old female transferred from [place] by ambulance to [facility] accompanied by family with a chief complaint of vaginal bleeding since 3 days ago. Patient states that it is not a lot of blood, but this morning, she had a great big blood clot. Patient denies pain and states that she did not experience syncope or even feel dizzy. Bloodwork Obtained. Urinalysis Obtained. Awaiting US Pelvis/Transvaginal. We discussed patient care with Dr. Bashir (OBGYN). requests an US and agrees to come to ED to see patient. Patient to be signed out at end of shift to Dr. Jacobs, awaiting eval and US. - Diagnoses Provider Diagnoses: Vaginal bleeding - Physician Notifications Discussed Care Of Patient With: Radha Bashir - ERIN Time Discussed With Above Provider: 06:40 - We discussed patient care with Dr. Bashir (OBGYN). requests an US and agrees to come to ED to see patient. Discharge - Discharge Plan Condition: Stable Disposition: ADMITTED TO [facility] The documentation as recorded by the Xander ferro Tecjoon accurately reflects the service I personally performed and the decisions made by , Neva Perla MD.
== END 2017-05-02 13:15 | disposition home or self-care (01) | DRG 760 ==
LOC: ED 06:15 → MED 10:20
PROVIDERS: ADMIT Hospitalist; ATTEND Hospitalist
PROC: 30233N1 Transfusion of Nonautologous Red Blood Cells into Peripheral Vein, Percutaneous Approach (ICD-10-PCS; principal; 2017-05-01)
DX: N93.9 Abnormal uterine and vaginal bleeding, unspecified (principal); D62 Acute posthemorrhagic anemia; E11.9 Type 2 diabetes mellitus without complications; I25.10 Atherosclerotic heart disease of native coronary artery without angina pectoris; E78.5 Hyperlipidemia, unspecified; R93.8 Abnormal findings on diagnostic imaging of other specified body structures; I10 Essential (primary) hypertension; Z95.5 Presence of coronary angioplasty implant and graft; Z88.0 Allergy status to penicillin; Z82.49 Family history of ischemic heart disease and other diseases of the circulatory system
CPT/HCPCS: 36415; 76830; 80048; 80053; 81003; 81015; 85014; 85018; 85025; 85027; 85610; 85730; 86140; 86850; 86900; 86901; 86922; A9270-GY; P9040

== ENCOUNTER 2017-06-04 07:28 | Day surgery (SDC) | payer MEDICARE, OTHER ==
[~2017-06-04 07:28] MED LIST: Buffered Lidocaine 0.9% SYRIN* 5 ML/SYR SYRINGE INTRADERM ONE; Famotidine IV* 10 MG/ML 2 ML (20 mg) IV ONE; Gentamicin ADULT (*) 250 MG in NS 0.9% 100 ML* 100 ML IVPB ONE; Metoclopramide IV* 5 MG/ML 2 ML VIAL IV SLOW PU ONE
[2017-06-04] MEDS ORDERED: Famotidine IV* 10 MG/ML 2 ML (20 mg) ONE (07:40)
[2017-06-04] MEDS ORDERED: Clindamycin 900 MG IVPREMIX(* 900 MG/50 ML SDV IV ONE (07:40)
[2017-06-04] MEDS ORDERED: Buffered Lidocaine 0.9% SYRIN* 5 ML/SYR SYRINGE ONE (07:40)
[2017-06-04] MEDS ORDERED: Metoclopramide IV* 5 MG/ML 2 ML VIAL ONE (07:40)
[2017-06-04] MEDS ORDERED: fentaNYL* 50 MCG/ML 2 ML VIAL (100 MCG VIAL) ONE (08:55)
[2017-06-04] MEDS ORDERED: Ferric Subsulfate* 8 ML BTL ONE (09:13)
[2017-06-04] MEDS ORDERED: Acetic Acid 0.25%* 250 ML BTL ONE (09:13)
[2017-06-04] MEDS ORDERED: Ondansetron INJ* 2 MG/ML VIAL ONE (09:29)
[2017-06-04] MEDS ORDERED: Propofol* 10 MG/ML 20 ML BTL IV PUSH ONE (09:29)
[2017-06-04] MEDS ORDERED: Lidocaine 2% PF * 5 ML VIAL ONE (09:30)
[2017-06-04] MEDS ORDERED: oxyCODONE/Acetamin 5/325 MG* TAB PO PRN (09:50)
[2017-06-04] MEDS ORDERED: Naloxone* 0.4 MG/ML 1 ML VIAL IV PRN (09:54)
[2017-06-04] MEDS ORDERED: fentaNYL* 50 MCG/ML 2 ML VIAL (100 MCG VIAL) IV PRN (09:54)
[2017-06-04 10:51] VITALS: BP 128/54
--- NOTE | 2017-06-04 21:16 | OP ---
DATE OF OPERATION: 06/04/17 - [facility] DATE OF : 39 SURGEON: Bree Otero MD ANESTHESIOLOGIST: Dr. Vergara. ANESTHESIA: General endotracheal. PRE-OP DIAGNOSES: Postmenopausal bleeding, thickened endometrium on ultrasound , cervical cancer on cervical biopsy. POST-OP DIAGNOSES: Postmenopausal bleeding, thickened endometrium on ultrasound , cervical cancer on cervical biopsy. OPERATIVE PROCEDURE: Dilation hysteroscopy, MyoSure removal of submucous myoma , endometrial curettage, colposcopy, endocervical curettage. ESTIMATED BLOOD LOSS: Minimal, less than 20 cc. SPECIMEN: 1. Portion to the submucous fibroid from the MyoSure collection. 2. Endometrial curettings. 3. Endocervical curettage. FLUIDS: Per Anesthesia. DRAINS: None. FINDINGS: Midline large cervix. There were no warty growths remaining following what was removed with the office biopsy. The uterus sounded to 8. There was a submucous myoma arising from the posterior uterine wall, which was at least 2 cm in size. There is otherwise atrophic appearing endometrium, both tubal ostia were visualized. COMPLICATIONS: None. COUNTS: Sponge, lap and needle count were x2 and the patient was brought to recovery room awake and in stable condition. DESCRIPTION OF PROCEDURE: The patient was brought to the operating room. When general anesthesia was found to be adequate, the patient was prepped and draped in the usual sterile fashion in the dorsal lithotomy position. Time-out was performed. Exam under anesthesia was performed, weighted speculum was placed in the vagina, the anterior lip of the cervix was grasped with a single-tooth tenaculum, and the cervix was gently and easily dilated with the graduated Hegar dilators. The MyoSure was advanced with the above findings noted. The submucous myoma was removed. Endo-metrial curettage was then performed. The cervix was then examined with the colposcope, none of the warty growths that were seen at the office remained. Endocervical curettage was performed and sent to pathology. All instruments were removed from the vagina and the patient was brought to the recovery room awake and in stable condition. [id number]/[facility] #: [id number] [facility]
== END 2017-06-04 11:19 | disposition home or self-care (01) ==
LOC: OR 07:28
PROVIDERS: ATTEND Obstetrics & Gynecology
DX: N95.0 Postmenopausal bleeding (principal); N84.0 Polyp of corpus uteri; I10 Essential (primary) hypertension; E11.8 Type 2 diabetes mellitus with unspecified complications; E66.01 Morbid (severe) obesity due to excess calories; I25.10 Atherosclerotic heart disease of native coronary artery without angina pectoris; Z85.41 Personal history of malignant neoplasm of cervix uteri; Z87.440 Personal history of urinary (tract) infections; Z79.84 Long term (current) use of oral hypoglycemic drugs; Z87.442 Personal history of urinary calculi; Z95.818 Presence of other cardiac implants and grafts; Z68.37 Body mass index [BMI] 37.0-37.9, adult
CPT/HCPCS: 88305; A9270-GY; J1580; J2405; J2704; J2765; J3010

== ENCOUNTER 2018-03-06 | Inpatient (IN) | payer MEDICARE, OTHER ==
[2018-03-06 01:35] LABS: ABS Basophils 0.1 10^3/ul (0-0.2); ABS Eosinophils 0.1 10^3/ul (0-0.6); ABS Lymphocytes 2.2 10^3/ul (1.0-4.8); ABS Neutrophils 13.1 10^3/ul (1.5-7.7); ABS Nucleated RBC 0 10^3/ul; Eosinophil % 0.5 % (0-6); Hematocrit 39 % (35-47); Hemoglobin 12.5 g/dl (12.0-16.0); Lymphocyte % 13.1 % (25-47); Mean Corpuscular HGB Conc 32 g/dl (31-36); Mean Corpuscular Hemoglobin 26 pg (27-31); Mean Corpuscular Volume 79 fL (80-97); Mean Platelet Volume 8.7 fL (7.4-10.4); Nucleated Red Blood Cells % 0; Platelet Count 229 10^3/ul (150-450); Red Blood Count 4.93 10^6/ul (4.00-5.40); Red Cell Distribution Width 16 % (10.5-15); White Blood Count 16.5 10^3/ul (3.5-10.8)
[2018-03-06 01:42] LABS: INR 1.02 (0.77-1.02)
--- NOTE | 2018-03-06 01:47 | ED ---
Complex/Multi-Sys Presentation - HPI Summary HPI Summary: This patient is a 82 year old F BIBA to [facility], transferred from [facility] accompanied by her children with a chief complaint of lightheadedness since 14:30. Patient reports that she fell while taking out the trash at 14:30 and she was unable to get up without assistance for 3 hours. The patient rates the pain 3/10 in severity. Symptoms aggravated by nothing. Symptoms alleviated by nothing. Patient reports right leg pain. Patient was able to walk with assistance. Patient denies CP. Patient was previously diagnosed with a UTI and was given abx. - History Of Current Complaint Chief Complaint: EDGeneral Time Seen by Provider: 03/06/18 00:03 Hx Obtained From: Patient, Family/Motorcycle Deliverer - patient's children Onset/Duration: Sudden Onset, Lasting Hours, Still Present Timing: Hours Severity Currently: Mild Severity Initially: Mild Aggravating Factor(s): nothing Alleviating Factor(s): nothing Associated Signs And Symptoms: Positive: Recent Trauma - fall from standing position, Other - lightheadedness, left leg pain. Negative: Chest Pain - Allergies/Home Medications Allergies/Adverse Reactions: Allergies Allergy/AdvReac Type Severity Reaction Status Date / Time Penicillins Allergy Hives Verified 03/06/18 02:55 Home Medications: Home Medications Aspirin EC TAB* [Ecotrin EC Low Dose 81 MG*] 81 mg PO DAILY 03/06/18 [History Confirmed 03/06/18] Atenolol TAB* [Tenormin TAB* 25 MG] 50 mg PO BEDTIME 03/06/18 [History Confirmed 03/06/18] amLODIPine TAB* [Norvasc 5 mg TAB*] 5 mg PO DAILY 03/06/18 [History Confirmed ] PMH/Surg Hx/FS Hx/Imm Hx Endocrine/Hematology History: Reports: Hx Diabetes, Hx Anemia Denies: Hx Thyroid Disease Cardiovascular History: Reports: Hx Congestive Heart Failure, Hx Coronary Artery Disease, Hx Hypercholesterolemia, Hx Hypertension, Other Cardiovascular Problems/Disorders - HIGH CHOLESTEROL Denies: Hx Angina, Hx Myocardial Infarction, Hx Peripheral Vascular Disease, Hx Valvular Heart Disease Respiratory History: Reports: Hx Pneumonia Denies: Hx Asthma, Hx Chronic Obstructive Pulmonary Disease (COPD) History: Reports: Hx Kidney Stones, Other Problems/Disorders - UTI Musculoskeletal History: Denies: Hx Osteoporosis Sensory History: Reports: Hx Contacts or Glasses, Hx Vision Problem Denies: Hx Cataracts, Hx Glaucoma, Hx Hearing Aid Opthamlomology History: Reports: Hx Contacts or Glasses, Hx Vision Problem Denies: Hx Cataracts, Hx Glaucoma Neurological History: Denies: Hx Headaches, Hx Seizures, Hx Transient Ischemic Attacks (TIA) - Surgical History Surgery Procedure, Year, and Place: CARDIAC STENT 2016 [facility] Hx Anesthesia Reactions: No - Immunization History Date of Tetanus Vaccine: utd Date of Influenza Vaccine: 2017 Infectious Disease History: No Infectious Disease History: Denies: Hx Clostridium Difficile, Hx Hepatitis, Hx Human Immunodeficiency Virus (HIV), Hx of Known/Suspected MRSA, Hx Shingles, Hx Tuberculosis, History Other Infectious Disease, Traveled Outside the [place] in Last 30 Days - Family History Known Family History: Positive: Other - non contributory Negative: Cardiac Disease - Social History Alcohol Use: None Hx Substance Use: No Substance Use Type: Reports: None Hx Tobacco Use: No Smoking Status (MU): Never Smoked Tobacco Have You Smoked in the Last Year: No Review of Systems Negative: Fever Negative: Epistaxis Negative: Chest Pain Musculoskeletal: Other - right leg pain Neurological: Other - lightheadedness All Other Systems Reviewed And Are Negative: Yes Physical Exam - Summary Physical Exam Summary: GENERAL: Patient is a well-developed and nourished F who is lying comfortable in the stretcher. Patient is not in any acute respiratory distress. HEAD AND FACE: Normocephalic EYES: PERRLA, EOMI x 2. EARS: Hearing grossly intact. MOUTH: Oropharynx within normal limits. NECK: Supple, trachea is midline, no adenopathy, no JVD, no carotid bruit. CHEST: Symmetric, no tenderness at palpation LUNGS: Clear to auscultation bilaterally. No wheezing or crackles. CVS: Regular rate and rhythm, S1 and S2 present, no murmurs or gallops appreciated. ABDOMEN: Soft, non-tender. Bowel sounds are normal. No abdominal abnormal pulsations. EXTREMITIES: Full ROM in all major joints, no edema, no cyanosis or clubbing. Ecchymosis to right cano NEURO: Alert and oriented x 3. No acute neurological deficits. Speech is normal and follows commands. SKIN: Dry and warm Triage Information Reviewed: Yes Vital Signs On Initial Exam: Initial Vitals Temp Pulse Resp BP Pulse Ox 97.3 F 99 20 145/80 91 03/06/18 00:00 03/06/18 00:00 03/06/18 00:00 03/06/18 00:00 03/06/18 00:00 Vital Signs Reviewed: Yes Diagnostics - Vital Signs Vital Signs Temp Pulse Resp BP Pulse Ox 03/06/18 00:07 99 20 145/80 91 03/06/18 00:00 97.3 F 99 20 14580 91 - Laboratory Lab Results: Lab Results 03/06/18 Range/Units 01:07 WBC 16.5 H (3.5-10.8) 10^3/ul RBC 4.93 (4.00-5.40) 10^6/ul Hgb 12.5 (12.0-16.0) g/dl Hct 39 (35-47) % MCV 79 L (80-97) fL MCH 26 L (27-31) pg MCHC 32 (31-36) g/dl RDW 16 H (10.5-15) % Plt Count 229 (150-450) 10^3/ul MPV 8.7 (7.4-10.4) fL Neut % (Auto) 79.7 (38-83) % Lymph % (Auto) 13.1 L (25-47) % [place] % (Auto) 6.2 (0-7) % Eos % (Auto) 0.5 (0-6) % Baso % (Auto) 0.5 (0-2) % Absolute Neuts (auto) 13.1 H (1.5-7.7) 10^3/ul Absolute Lymphs (auto) 2.2 (1.0-4.8) 10^3/ul Absolute Monos (auto) 1.0 H (0-0.8) 10^3/ul Absolute Eos (auto) 0.1 (0-0.6) 10^3/ul Absolute Basos (auto) 0.1 (0-0.2) 10^3/ul Absolute Nucleated RBC 0 10^3/ul Nucleated RBC % 0 Result Diagrams: 03/06/18 04:37 03/06/18 04:37 Lab Statement: Any lab studies that have been ordered have been reviewed, and results considered in the medical decision making process. 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 Complex Multi-Symp Course/Dx Course Of Treatment: This patient is a 82 year old F transferred from [facility] reporting lightheadedness, right leg pain, and fall from a standing position since 14:30. Patient was unable to get up without assistance for 3 hours. Patient was previously diagnosed with a UTI and was given abx. Workup remarkable with ecchymosis to right cano. An EKG reveals sinus tachycardia at 100 bpm with RBBB and LAFB. Discussed care with Dr. Pettit, hospitalist, at 02 :44 and he agreed to admit the patient to [facility]. The patient will be admitted. Case discussed with hospitalist. I discussed results with patient. The patient agrees with this plan. - Diagnoses Provider Diagnoses: Syncope - Physician Notifications Discussed Care Of Patient With: Nikhil Pettit Time Discussed With Above Provider: 02:44 Instructed by Provider To: Admit As Inpatient Discharge - Sign-Out/Discharge Documenting (check all that apply): Patient Departure - admit to [facility] - Discharge Plan Condition: Stable Disposition: ADMITTED TO [facility] - Billing Disposition and Condition Condition: STABLE Disposition: Admitted to [facility] - Attestation Statements Document Initiated by Scribe: Yes Documenting Scribe: Angela Lee Provider For Whom Erika is Documenting (Include Credential): Vladislav Azul MD Scribe Attestation: Angela Bergeron, scribed for Vladislav Azul MD on 03/07/18 at 0145. Scribe Documentation Reviewed: Yes Provider Attestation: The documentation as recorded by the maxibAngela haas accurately reflects the service I personally performed and the decisions made by , Nayan Azul MD
[2018-03-06 01:54] LABS: EGFR Non-African American 102.1 (>60)
[2018-03-06] MEDS ORDERED: Potassium Chlor TAB* 20 MEQ TAB.ER PO ONE (02:04)
[2018-03-06] MEDS ORDERED: Ondansetron INJ* 2 MG/ML VIAL IV PRN (02:44)
[2018-03-06] MEDS ORDERED: Dextrose 50% Syringe 50 ML* 25 GM/50 ML SYRINGE IV PUSH PRN (02:44)
[2018-03-06] MEDS ORDERED: Magnesium Sulfate 2 GM IV* 2 GM/50 ML BAG IVPB ONE (02:44)
[2018-03-06] MEDS ORDERED: NS 0.9% 1000 ML* 1,000 ML IV ONE (02:44)
[2018-03-06] MEDS ORDERED: NS 0.9% 1000 ML* 1,000 ML IV SCH (02:45)
[2018-03-06] MEDS ORDERED: cefTRIAXone(*) 1 GM in NS 0.9% 50 ML* 50 ML IVPB SCH (02:45)
[2018-03-06] MEDS ORDERED: Atenolol TAB* 25 MG PO SCH (03:00)
[2018-03-06] MEDS ORDERED: Iodixanol 320 (CONTRAST) 100 ML SDV IV ONE (04:12)
[2018-03-06 04:54] LABS: ABS Basophils 0.2 10^3/ul (0-0.2); ABS Eosinophils 0.1 10^3/ul (0-0.6); ABS Lymphocytes 2.3 10^3/ul (1.0-4.8); ABS Monocytes 0.8 10^3/ul (0-0.8); ABS Neutrophils 10.2 10^3/ul (1.5-7.7); ABS Nucleated RBC 0 10^3/ul; Eosinophil % 0.9 % (0-6); Hematocrit 40 % (35-47); Hemoglobin 12.9 g/dl (12.0-16.0); Lymphocyte % 16.7 % (25-47); Mean Corpuscular HGB Conc 32 g/dl (31-36); Mean Corpuscular Hemoglobin 25 pg (27-31); Mean Corpuscular Volume 79 fL (80-97); Mean Platelet Volume 8.6 fL (7.4-10.4); Nucleated Red Blood Cells % 0; Platelet Count 217 10^3/ul (150-450); Red Blood Count 5.08 10^6/ul (4.00-5.40); Red Cell Distribution Width 16 % (10.5-15); White Blood Count 13.7 10^3/ul (3.5-10.8)
[2018-03-06 05:07] LABS: EGFR Non-African American 96.2 (>60)
--- NOTE | 2018-03-06 05:24 | RAD ---
EXAM: CT Angiography Chest With Intravenous Contrast EXAM DATE/TIME: 03/06/2018 4:14 AM CLINICAL HISTORY: 82 years old, female; Injury or trauma; Fall; Initial encounter; Blunt trauma (contusions or hematomas); Lower abdominal or back area; Bilateral; Injury date: ; Injury details: PT fell outside found down from approx 2pm to 6 pm; Additional info: Chest pain, elevated trop TECHNIQUE: Axial computed tomographic angiography images of the chest with intravenous contrast using CT angiography protocol. All CT scans at this facility use at least one of these dose optimization techniques: automated exposure control; mA and/or kV adjustment per patient size (includes targeted exams where dose is matched to clinical indication); or iterative reconstruction. Coronal and sagittal reformatted images were created and reviewed. MIP reconstructed images were created and reviewed. CONTRAST: 100 ml of VISIPAQUE 320 administered intravenously. COMPARISON: DX CXR CHEST PA LAT 2 VWS 03/07/2016 7:20 AM FINDINGS: Pulmonary arteries: No evidence of pulmonary embolic disease. Aorta: No evidence of a thoracic aneurysm or dissection. The mid ascending thoracic aorta measures 2.9 cm in AP length. The descending thoracic aorta at the level of the wesley measures 2.3 cm in diameter. Lungs: Linear opacity located in the right lung base which may represent an area of atelectasis and/or scarring. Pleural space: Normal. No pneumothorax. No pleural effusion. Heart: The heart is of normal size. No pericardial thickening or effusion. No right heart strain. Moderate coronary calcification. Bones/joints: The thoracic cage is intact. Slight anterior wedging of the T8 vertebral body. Minimal loss of height. Irregularity of the endplates in the mid to lower thoracic spine consistent with Schmorl's nodes. Soft tissues: Unremarkable. Lymph nodes: No mediastinal adenopathy. IMPRESSION: No acute findings. EXAM: CT Angiography Abdomen and Pelvis With Intravenous Contrast EXAM DATE/TIME: 03/06/2018 4:14 AM CLINICAL HISTORY: 82 years old, female; Injury or trauma; Fall; Initial encounter; Blunt trauma (contusions or hematomas); Lower abdominal or back area; Bilateral; Injury date: ; Injury details: PT fell outside found down from approx 2pm to 6 pm; Additional info: Chest pain, elevated trop TECHNIQUE: Axial computed tomographic angiography images of the abdomen and pelvis with intravenous contrast material, including non-contrast images if performed. MIP and/or 3D reconstructed images were created and reviewed. All CT scans at this facility use least one of these dose optimization techniques: automated exposure control; mA and/or kV adjustment per patient size (includes targeted exams where dose is matched to clinical indication); or iterative reconstruction. Coronal and sagittal reformatted images were created and reviewed. MIP reconstructed images were created and reviewed. CONTRAST: 100 ml of VISIPAQUE 320 administered intravenously. COMPARISON: DX CXR CHEST PA LAT 2 VWS 03/07/2016 7:20 AM FINDINGS: Lungs: Normal. No consolidation. VASCULATURE: Aorta: No abdominal aortic aneurysm or dissection. Celiac Trunk and Mesenteric Arteries: No occlusion or significant stenosis. Renal Arteries: No occlusion or significant stenosis. Iliac Arteries: No occlusion or significant stenosis. Common Femoral Arteries: No occlusion or significant stenosis. ABDOMEN: Liver: The liver is of normal size and appearance. No focal hepatic lesion. No evidence of a contusion or laceration. Gallbladder and bile ducts: The gallbladder is distended. Small stones and/or sludge is seen in the dependent region of the gallbladder. No gallbladder wall thickening. No fluid in the gallbladder fossa. Pancreas: The pancreas is normal in appearance. No distention of the pancreatic duct. Spleen: The spleen is of normal size and appearance. No evidence for laceration or contusion. Adrenals: Nodular appearance to both adrenal glands. Kidneys and ureters: The kidneys are of normal size. In the posterior aspect of the right kidney is a fatty lesion which measures 2 cm in greatest length. This could represent an angiomyolipoma. Small calcified stones located in an inferior pole calyx in the right kidney. These are nonobstructing. In the left kidney there is a small calcified stone in an upper pole calyx. This is nonobstructing. Stomach and bowel: Small hiatal hernia. No bowel obstruction. No bowel wall thickening. Appendix: The appendix is visualized and is normal in appearance. PELVIS: Bladder: Fluid collection located between the bladder and rectum. This measures 4.6 cm in AP length and 8 cm in width. Reproductive: Unremarkable as visualized. ABDOMEN and PELVIS: Intraperitoneal space: Unremarkable. No free air. No significant fluid collection. Bones/joints: The lumbar spine is intact as well as the posterior elements. The pelvic musculoskeletal structures appear intact. Soft tissues: Unremarkable. Lymph nodes: Unremarkable. No enlarged lymph nodes. IMPRESSION: 1. No acute findings. 2. 2 cm fatty lesion within the right kidney. This may represent a lipoma or an angiolipoma,. Suggest obtaining old films for comparison. If none are available recommend followup CT in 1 year. 3. Fluid collection located in the vagina. To contact [facility] with a general question: Operations Center - [phone] For direct physician to physician contact: Physician Hotline - [phone] [facility] ([facility] Facility ID #[id number])
[2018-03-06] MEDS: KCL 10 MEQ/50 ML IVPREMIX* 10 MEQ/50 ML BAG IV SCH ×3 (06:29→10:10)
[2018-03-06] MEDS: Heparin VIAL(*) 5000 UNITS/ML VIAL (FIVE THOUSAND) SUBCUT SCH ×3 (06:30→21:25)
--- NOTE | 2018-03-06 08:01 | HP ---
CC: Dr. Fay [facility] * HISTORY AND PHYSICAL: DATE OF ADMISSION: 03/06/18 PRIMARY CARE PROVIDER: Dr. Fay from [facility]. ATTENDING PHYSICIAN WHILE IN THE HOSPITAL: Dr. Mely Frausto * (report dictated by Nikhil Pettit NP). CHIEF COMPLAINT: Fall. HISTORY OF PRESENT ILLNESS: Ms. Cuevas is an 82-year-old female patient. She has a history of cervical cancer, status post hysterectomy; CAD; hypertension; hyperlipidemia; diabetes; history of TIA. She presents to the emergency department today. She says that she around 2 o'clock this afternoon noticed that there was garbage spread out on her porch. She thinks some animals may have gotten into it. 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 She says she did not think that she fainted or passed out. She did not feel lightheaded prior to or after this. She fell on her face landed on her chest and broke the fall with her right leg and right arm. She hit her chest and landed on her stomach. She, unfortunately, tried pressing her Life Alert but it was not set up appropriately, so she lied that on her chest for about 4 hours until about 1800 tonight when her son had found her. Her son basically had called her other son and they got her up into the living room and she was using her rolling walker. She was walking, not having pain, but she did admit to having a sharp quick jolt of pain in her chest, described again as very quick lasting only seconds with no associated nausea or shortness of breath. She relayed this information to her children and they were concerned and had her brought to the ER. She denies any chest pain now. She said she did have 1 episode this morning when she was cooking she had an episode where she felt lightheaded and she was able to place her arms on the counter and catch herself and she did not fall or faint or pass out, but she felt lightheaded and she denies feeling lightheaded now or dizzy. There are no recent reports of change in medications. She says that she has not had any recent long trips or travels. There have been no recent reports of fevers or cough. She does state that she has been having some frequency. She states she has felt constipated, but no abdominal pain or nausea or vomiting or any fevers, chills, or cold symptoms. She went to [facility], there at [facility] was found to have an elevated troponin. She was also noted to have a UTI and a white count of 24,000 and she was sent to our facility mostly for the elevated troponin and further evaluation. PAST MEDICAL HISTORY: Significant for: 1. Cervical cancer. 2. CAD. 3. Hypertension. 4. Hyperlipidemia. 5. Diabetes. 6. TIA. PAST SURGICAL HISTORY: She has had: 1. Hysterectomy. 2. Cardiac catheterization. MEDICATIONS: Home meds according to the list that she provided include: 1. Amlodipine 5 mg daily. 2. Atenolol 50 mg p.o. at bedtime. 3. Aspirin 81 mg daily. 4. Lipitor 80 mg daily. 5. Glucophage 1000 mg p.o. b.i.d. 6. Januvia 100 mg p.o. daily. 7. Losartan 50 mg p.o. q.a.m. ALLERGIES TO MEDICATIONS: Include PENICILLIN. FAMILY HISTORY: Her mother had an FL at 68, father had an FL at 70. SOCIAL HISTORY: She does not smoke, does not drink. Surrogate decision maker is her son, Isra. REVIEW OF SYSTEMS: There is no documented fever. She denies having any significant weight change. There was no double vision. She denies having any ear discharge. There is no rhinorrhea. She denied having any sore throat. There was no thyroid enlargement. She did admit to that 1 episode of chest pain. There is no orthopnea, no nocturnal dyspnea. She denies having any abdominal pain. There was no nausea, there is no vomiting. No dysuria, no frequency. No seizure, no loss of conscious. No pruritus and again no skin ulcers. Review of 14 systems completed, all others negative. PHYSICAL EXAMINATION GENERAL: At this time, Ms. Cuevas is an 82-year-old female patient. She is sitting in the ED stretcher. She does not appear to be in any acute distress. VITAL SIGNS: Blood pressure 145/80, pulse 99, respirations 20, O2 sat 91%, temperature 97.3. HEENT: Head: Atraumatic, normocephalic. Eyes: EOMs are intact. Sclerae are anicteric and not pale. Throat: Oral mucosa appears to be moist. No oropharyngeal erythema. NECK: Supple. LUNGS: Clear to auscultation bilaterally. There were no wheezes, rales, or rhonchi. HEART: Sounds S1 and S2. She had a regular rate and rhythm. She had no murmurs, rubs, or gallops. ABDOMEN: Soft, flat, nontender. Bowel sounds were present. EXTREMITIES: She did have ecchymosis noted to the right pretibial area just below the knee to the right lower extremity. She had 5/5 strength. She is moving all 4 extremities with 5/5 strength. She did have an abrasion to her right elbow, but again she has good flexion, extension, pronation, and supination. She has no pain with exception to just below her right knee. NEUROLOGIC: She is awake, she is alert, she is oriented x3. Her speech is clear. Her tongue midline. Her testing and regulating chief were equal. She had no gross focal deficits. SKIN: Her skin is intact with the exception there is an abrasion to her right elbow. DIAGNOSTIC STUDIES/LAB DATA: Today are revealing a WBC of 16.5, RBC of 4.93, hemoglobin of 12.5, hematocrit of 39, and platelet count of 229. Her INR was 1.02, her PTT was 27.8. Sodium was 139, potassium was 3.3, chloride of 106, bicarb 23, BUN 16, creatinine of 0.57, glucose 145, lactate 1.6, calcium 8.8, mag 1.3. Total bili 0.4, AST 18, ALT was 11, alk phos 83. CK 402. Troponin 0.18. BNP is 72. Albumin 3.7. Over at [facility], she did have troponin which was 0.112. She also had a UA, which did show positive nitrite, positive leukocyte esterase. She also had imaging over at [facility] which revealed CT brain, impression: Diffuse brain atrophy, periventricular and subcortical white matter chronic microvascular angiopathy. She also had CT cervical spine, minimal degenerative changes without fracture or malalignment. She had an x-ray of the hips and pelvis, which showed [id number] bilateral hip osteoarthritis with no definite radiographic evidence of acute displaced fracture or dislocation. She also had an EKG obtained here today, which does show a right bundle branch block with evidence of sinus tachycardia. No ST elevation or T-wave inversions. When you review that to her previous EKG from 2017, it does appear to be similar. The tachycardia is new. She had a cardiac catheterization just done in June of 2016 which showed left main has an inferior distal 30% stenosis, circumflex is large to codominant and has a proximal 90% to 95% stenosis before the large bifurcation in the marginal branch. Stent was placed there. Old medical records reviewed. ASSESSMENT AND PLAN: Ms. Cuevas is an 82-year-old female patient coming into the ER today with complaints of a fall and having a single episode of chest pain lasting seconds. On evaluation at [facility], it was noted that she has an elevated troponin. She appeared to have signs of sepsis. In addition, she was found to have a urinary tract infection. She will be admitted under inpatient status for: 1. Sepsis secondary to urinary tract infection. Again, she has elements of sepsis and the fact that she has elevated white count. In addition to this, she has urinary tract infection. She does have the elevated troponin as well. My plan at this point was to get blood cultures and lactate, place her on Rocephin. Get urine cultures as well and give her another liter of fluids and then normal saline at 125 an hour. 2. Fall. Again, it she does not seem like had a syncopal episode, but I will go ahead and check the x-rays of her right lower extremity and her knee. Given the fact that she has some ecchymosis here, I am going to CT her pelvis to make sure she does not have any occult pelvic fractures. 3. Elevated troponin. Etiology is unclear. This could be secondary to arrhythmia, could be secondary to pulmonary embolism. I do note that her O2 saturations at times does hover in the low 90s and she is tachycardic. I am going to get CTA of the chest. I am also going to get an echo. Cycle her troponins. EKG is stable. She has gotten an aspirin. I am going to give her a beta tamika. She did not take it tonight. So, I am going to give that to her right now. She is on aspirin, statin, beta-tamika therapy, and chest pain free currently. We will continue to follow. Her symptoms were atypical. 4. Hypokalemia. We will replace. 5. Hypomagnesemia. We will replace. 6. Elevated CK, could just be from the fact that she was on the ground. We will hydrate her and monitor this. 7. History of cervical cancer. Follow PCP. 8. Coronary artery disease. She is on aspirin, statin, and beta tamika. Continue. 9. Hypertension. Continue meds as prescribed with the exception of her losartan particularly in the setting of acute illness and her amlodipine. The last blood pressure was 145/80, but then she had one taken recently which showed it was in 118/70. So, we would like to hold off. 10. Diabetes. [address] her on lispro sliding scale. 11. History of transient ischemic attack. Continue with secondary prevention. 12. DVT prophylaxis. She will be placed on heparin subcu. 13. Code status: Full code. 14. Fluids, electrolytes, and nutrition: She can have a consistent carb diet. TIME SPENT: Time spent on the admission is 60 minutes, greater than half the time was spent [id number] with the patient obtaining my history and physical, other half the time was spent going over the plan of care with the patient and implementing the plan of care. I did discuss the plan of care with my attending, Dr. Frausto; she is in agreement. NIKHIL PETTIT, BROCK [id number]/[facility] #: [id number] MTDD
[2018-03-06] MEDS: Insulin LISPRO* 1 UNITS UNIT SUBCUT SCH ×3 (08:40→17:29)
[2018-03-06] MEDS: Aspirin EC TAB* 81 MG TAB.EC PO SCH (08:41)
[2018-03-06] MEDS ORDERED: Magnesium Sulf 4 GM/100 ML IV* 4,000 MG/100 ML BAG IVPB ONE (08:45)
[2018-03-06] MEDS ORDERED: Atorvastatin* 20 MG TAB PO SCH (09:00)
[2018-03-06] MEDS ORDERED: Atenolol TAB* 50 MG PO ONE (09:35)
[2018-03-06] MEDS ORDERED: KCL 10 MEQ/50 ML IVPREMIX* 10 MEQ/50 ML BAG ONE (10:08)
--- NOTE | 2018-03-06 13:49 | PN ---
Subjective Date of Service: 03/06/18 Interval History: Patient is feeling much better with fluids and medication from yesterday. Patient denies F/C, CP, SOB, dysuria, N/V, abdominal pain, diarrhea, dizziness, diaphoresis, or other pain. Patient is able to walk without SOB. Patient had a Cath with [facility]ON placement in 2017 and is now off Brilinta. Patient would be amenable to another Cath if indicated. Patient has chronic KEY which she feels may have been getting worse but denies Orthopnea, Nocturia, or PND. Family History: Unchanged from Admission Social History: Unchanged from Admission Past Medical History: Unchanged from Admission Objective Active Medications: Acetaminophen (Tylenol Tab*) 650 mg PO Q4H PRN PRN Reason: FEVER/PAIN Aspirin (Aspirin Ec Tab*) 81 mg PO DAILY [facility] Last Admin: 03/06/18 08:41 Dose: 81 mg Atenolol (Tenormin Tab*) 50 mg PO BEDTIME [facility] Atorvastatin Calcium (Lipitor*) 80 mg PO 1700 [facility] Dextrose (D50w Syringe 50 Ml*) 12.5 gm IV PUSH .FOR FS < 60 - SS PRN PRN Reason: FS < 60 Heparin Sodium (Porcine) (Heparin Vial(*)) 5,000 units SUBCUT Q8HR [facility] Last Admin: 03/06/18 13:20 Dose: 5,000 units Ceftriaxone Sodium 1 gm/ (Sodium Chloride) 50 mls @ 200 mls/hr IVPB Q24H [facility] Sodium Chloride (Ns 0.9% 1000 Ml*) 1,000 mls @ 75 mls/hr IV PER RATE [facility] Stop: 03/07/18 22:19 Insulin Human Lispro (Humalog*) 0 units SUBCUT [facility]; Protocol Last Admin: 03/06/18 12:21 Dose: 3 units Ondansetron HCl (Zofran Inj*) 4 mg IV Q6H PRN PRN Reason: NAUSEA Vital Signs - 8 hr 03/06/18 03/06/18 03/06/18 08:00 08:01 08:04 Temperature Pulse Rate 102 97 Respiratory 20 Rate Blood Pressure 140/93 123/57 (mmHg) O2 Sat by Pulse Oximetry 03/06/18 08:06 Temperature 99.0 F Pulse Rate 101 Respiratory 18 Rate Blood Pressure 119/53 (mmHg) O2 Sat by Pulse 96 Oximetry Oxygen Devices in Use Now: None Appearance: Patient is an 82yo female who appears stated age and is sitting in the bed in NAD. Eyes: No Scleral Icterus, PERRLA Ears/Nose/Mouth/Throat: NL Teeth, Lips, Gums, Clear Oropharnyx, Mucous Membranes Moist Neck: NL Appearance and Movements; NL JVP, Trachea Midline Respiratory: Symmetrical Chest Expansion and Respiratory Effort, - - Crackles in Lung bases. Cardiovascular: NL Sounds; No Murmurs; No JVD, RRR, No Edema - 2+ edema in Lower Extremities. Abdominal: NL Sounds; No Tenderness; No Distention, No Hepatosplenomegaly Lymphatic: No Cervical Adenopathy Extremities: No Edema, No Clubbing, Cyanosis Skin: No Rash or Ulcers, No Nodules or Sclerosis Neurological: Alert and Oriented x 3, NL Sensation, NL Muscle Strength and Tone , - - CN II-XII intact. Result Diagrams: 03/06/18 04:37 03/06/18 04:37 Additional Lab and Data: Lab Results Assess/Plan/Problems-Billing Assessment: Patient is an 82yo female with a PMH for CAD S/P Stenting in 2017, DM, TIA, who is here with a Mechanical fall with prolonged down-time, Slight atypical chest pain with elevated troponin and a diagnosis of UTI from an outside hospital who is improving with fluids and antibiotics. - Patient Problems (1) Sepsis Current Visit: Yes Status: Acute Comment: - Due to Urinary Tract infection - Broad spectrum antibiotics given - Likely rebound from BB contributing to tachycardia. - Continue fluids gently due to signs of overload. - Patient is orthostatically hypotensive. (2) UTI (urinary tract infection) Current Visit: Yes Status: Acute Comment: - Patient is asymptomatic. Patient had positive urinalysis at outside hospital, will follow up on culture results. - Continue Ceftriaxone - Likel cause of patient's weakness and fall. (3) CAD (coronary artery disease) Current Visit: No Status: Acute Code(s): I25.10 - ATHSCL HEART DISEASE OF [place] CORONARY ARTERY W/O ANG PCTRS SNOMED Code(s): 00071710 Comment: - Had 2 episodes of CP which were atypical. - Recently completed Brilinta - Slight troponin elevation. - With known CAD and troponin elevation, will get stress test when patient's sepsis resolves. - Continue Aspirin, BB, Statin - DIEGO score of % indicating intermediate risk. (4) DM type 2 (diabetes mellitus, type 2) Current Visit: No Status: Acute Comment: - Hemoglobin A1c 7.5. - Lispro SS with good control so far. - Resume home meds at discharge. (5) Hypertension Current Visit: Yes Status: Acute Code(s): I10 - ESSENTIAL (PRIMARY) HYPERTENSION SNOMED Code(s): 82298531 Comment: - Normotensive - Continue Atenolol and hold Losartan. (6) DVT prophylaxis Current Visit: No Status: Acute Code(s): BDY8460 - SNOMED Code(s): 345298321 Comment: - Heparin SubQ (7) Full code status Current Visit: No Status: Acute Code(s): Z78.9 - OTHER SPECIFIED HEALTH STATUS SNOMED Code(s): 367228058 Status and Disposition: Inpatient.
[2018-03-06] MEDS: NS 0.9% 1000 ML* 1,000 ML IV SCH (15:40)
[2018-03-06 16:36] LABS: Urine Appearance Cloudy; Urine Blood Negative (Negative); Urine Color Yellow; Urine Ketones Negative (Negative); Urine Protein Negative (Negative); Urine Red Blood Cell 3+(>10/hpf) (Absent); Urine Urobilinogen Negative (Negative); Urine White Blood Cell 3+(>20/hpf) (Absent)
[2018-03-06] MEDS: Atorvastatin* 80 MG TAB PO SCH (17:30)
[2018-03-06] MEDS: cefTRIAXone(*) 1 GM in NS 0.9% 50 ML* 50 ML IVPB SCH (21:26)
[2018-03-06] MEDS: Acetaminophen TAB* 325 MG PO PRN (21:35)
[2018-03-07] MEDS ORDERED: Atenolol TAB* 50 MG PO SCH ×2 (03:00→21:00)
[2018-03-07] MEDS: Heparin VIAL(*) 5000 UNITS/ML VIAL (FIVE THOUSAND) SUBCUT SCH ×3 (05:34→21:48)
[2018-03-07] MEDS: NS 0.9% 1000 ML* 1,000 ML IV SCH (05:50)
--- NOTE | 2018-03-07 07:55 | RAD ---
Indication: Edema and anterior right lower leg pain after a fall the previous day Comparison: None. Technique: 4 views right lower leg. Report: The visualized bones are adequately corticated and well aligned. There is no acute fracture, dislocation or other focal abnormality. The soft tissues appear grossly normal. IMPRESSION: No radiographically apparent fracture or dislocation involving the right lower leg. If the patient's symptoms persist, follow-up imaging is recommended. R1NF
[2018-03-07] MEDS: Aspirin EC TAB* 81 MG TAB.EC PO SCH (08:32)
[2018-03-07] MEDS: Insulin LISPRO* 1 UNITS UNIT SUBCUT SCH ×4 (08:32→17:17)
[2018-03-07] MEDS ORDERED: Polyethylene Glycol 3350* 17 GM PACKET PO PRN (09:18)
[2018-03-07] MEDS ORDERED: Benzonatate CAP* 100 MG PO PRN (09:37)
[2018-03-07] MEDS ORDERED: Atenolol TAB* 50 MG PO ONE (09:40)
[2018-03-07 11:40] LABS: ABS Basophils 0.1 10^3/ul (0-0.2); ABS Eosinophils 0.4 10^3/ul (0-0.6); ABS Monocytes 0.7 10^3/ul (0-0.8); ABS Neutrophils 3.7 10^3/ul (1.5-7.7); ABS Nucleated RBC 0 10^3/ul; Eosinophil % 6.2 % (0-6); Hematocrit 40 % (35-47); Hemoglobin 12.8 g/dl (12.0-16.0); Lymphocyte % 28.9 % (25-47); Mean Corpuscular HGB Conc 32 g/dl (31-36); Mean Corpuscular Hemoglobin 26 pg (27-31); Mean Corpuscular Volume 80 fL (80-97); Mean Platelet Volume 8.7 fL (7.4-10.4); Nucleated Red Blood Cells % 0; Platelet Count 221 10^3/ul (150-450); Red Cell Distribution Width 16 % (10.5-15); White Blood Count 6.8 10^3/ul (3.5-10.8)
[2018-03-07 11:54] LABS: EGFR Non-African American 104.2 (>60)
--- NOTE | 2018-03-07 13:16 | ECHO ---
Patient: SLY GARCIA [facility] Rec#: [id number] : 1935 Date: 03/07/2018 Age: 82y Weight: kg / NaN lbs Sex: F Room#: [facility] Admit Date#: 03/06/2018 Type: Inpatient Referring: Nikhil Pettit NP Reading: Axel Bowen MD [employer] Helper: Kary Rivera RDCS CC: Christian Fay MD Transthoracic Echocardiogram Indication: Chest pain BP: 110/51 HR: 81 Rhythm: NSR with PVCs Findings History: HTN, HLD, DM, CAD, TIA, obesity. Technical Comments: The study quality is fair. Left Ventricle: The left ventricular chamber size is normal. Mild concentric left ventricular hypertrophy is observed. There is normal left ventricular systolic function. The estimated ejection fraction is 55-60%. Abnormal left ventricular diastolic function is observed. Abnormal left ventricular diastolic filling is observed, consistent with impaired relaxation. Left Atrium: The left atrium is mildly dilated. Right Ventricle: The right ventricular cavity size is normal. The right ventricular global systolic function is normal. Right Atrium: The right atrium is mildly dilated. Aortic Valve: The aortic valve is trileaflet. The aortic valve leaflets are mildly thickened. There is a trace of aortic regurgitation. There is no evidence of aortic stenosis. Mitral Valve: There is mitral annular calcification. The mitral valve leaflets are mildly thickened. Mitral valve anterior leaflet calcification is visualized. Mitral valve leaflet mobility is mildly restricted. There is mild mitral regurgitation. There is mild mitral stenosis. Tricuspid Valve: The tricuspid valve leaflets are mildly thickened. There is trace tricuspid regurgitation. The right ventricular systolic pressure is estimated at 24 mmHg. No pulmonary hypertension is noted. There is no tricuspid stenosis. Pulmonic Valve: The pulmonic valve appears normal. There is a trace pulmonic regurgitation. There is no pulmonic stenosis. Pericardium: There is no significant pericardial effusion. A pericardial fat pad is visualized. Aorta: There is mild dilatation of the ascending aorta. There is no dilatation of the aortic arch. The aortic root is normal in size. Pulmonary Artery: The main pulmonary artery is not well visualized. Venous: The inferior vena cava is dilated. There is a greater than 50% respiratory change in the inferior vena cava dimension. Conclusions Mild concentric left ventricular hypertrophy is observed. There is normal left ventricular systolic function. The estimated ejection fraction is 55-60%. Abnormal left ventricular diastolic filling is observed, consistent with impaired relaxation. The left atrium is mildly dilated. The aortic valve leaflets are mildly thickened. The mitral valve leaflets are mildly thickened. Mitral valve leaflet mobility is mildly restricted. There is mild mitral regurgitation. There is mild mitral stenosis. There is trace tricuspid regurgitation. There is mild dilatation of the ascending aorta. Similar to except that the mild mitral stenosis is newly reported and the MR has increased from trace then to mild now. Measurements Name Value Normal Range RVIDd (AP) 2D 3 cm (0.9 - 2.6) RVDdMajor (2D) 4.3 cm (2.2 - 4.4) RAd ISD 4CH 5.2 cm (3.4 - 4.9) RA (A4C)W 3.3 cm (2.9 - 4.6) IVSd (2D) 1.1 cm (0.6 - 1) LVPWd (2D) 1.1 cm (0.6 - 1) LVIDd (2D) 4.1 cm (3.6 - 5.4) LVIDs (2D) 3.1 cm - LV FS (2D) 26 % (25 - 45) Aortic Annulus 1.9 cm (1.4 - 2.6) Ao root diameter (2D) 2.8 cm (2.1 - 3.5) Ascending Ao 3.5 cm (2.1 - 3.4) Aortic arch 2.4 cm (1.8 - 3.4) LA dimension (AP) 2D 4.1 cm (2.3 - 3.8) LAd ISD 4CH 5.6 cm (2.9 - 5.3) LA ISD 4CH W 3.6 cm (2.5 - 4.5) Name Value Normal Range LA ESV BP (A/L) index 27 ml/m2 - Name Value Normal Range MV E-wave Vmax 1.1 m/sec - MV deceleration time 158 msec - MV A-wave Vmax 1.5 m/sec - MV E:A ratio 0.7 ratio - LV septal e' Vmax 0.04 m/sec - LV lateral e' Vmax 0.05 m/sec - LV E:e' septal ratio 27.5 ratio - LV E:e' lateral ratio 22 ratio - Name Value Normal Range AV Vmax 1.6 m/sec - AV VTI 38.1 cm - AV peak gradient 11 mmHg - AV mean gradient 6 mmHg - LVOT Vmax 1.1 m/sec - LVOT VTI 27.7 cm - LVOT peak gradient 5 mmHg - LVOT mean gradient 2 mmHg - GREG Vmax 0.8 m/sec - Name Value Normal Range MV Vmax 1.66 m/sec - MV VTI 34.44 cm - MV peak gradient 10.99 mmHg - MV mean gradient 3.97 mmHg - Name Value Normal Range TR Vmax 2 m/sec - TR peak gradient 16 mmHg - RAP 8 mmHg - RVSP 24 mmHg - IVC diameter 2.1 cm - Name Value Normal Range PV Vmax 1 m/sec - PV peak gradient 4 mmHg -
[2018-03-07] MEDS ORDERED: Dextrose 50% Syringe 50 ML* 25 GM/50 ML SYRINGE IV PUSH PRN (13:43)
--- NOTE | 2018-03-07 13:44 | PN ---
Subjective Date of Service: 03/07/18 Interval History: Patient is feeling well today. Lower extremity edema at baseline per patient. Patient feels persistently very weak with exertion. Patient denies abdominal pain, diarrhea, dysuria, dizziness, CP, SOB, N/V, or other pain. Family History: Unchanged from Admission Social History: Unchanged from Admission Past Medical History: Unchanged from Admission Objective Active Medications: Acetaminophen (Tylenol Tab*) 650 mg PO Q4H PRN PRN Reason: FEVER/PAIN Last Admin: 03/06/18 21:35 Dose: 650 mg Aspirin (Aspirin Ec Tab*) 81 mg PO DAILY [facility] Last Admin: 03/07/18 08:32 Dose: 81 mg Atenolol (Tenormin Tab*) 50 mg PO BEDTIME [facility] Atorvastatin Calcium (Lipitor*) 80 mg PO 1700 [facility] Last Admin: 03/06/18 17:30 Dose: 80 mg Benzonatate (Tessalon Cap*) 100 mg PO BID PRN PRN Reason: COUGH Dextrose (D50w Syringe 50 Ml*) 12.5 gm IV PUSH .FOR FS < 60 - SS PRN PRN Reason: FS < 60 Heparin Sodium (Porcine) (Heparin Vial(*)) 5,000 units SUBCUT Q8HR [facility] Last Admin: 03/07/18 12:14 Dose: 5,000 units Ceftriaxone Sodium 1 gm/ (Sodium Chloride) 50 mls @ 200 mls/hr IVPB Q24H [facility] Last Admin: 03/06/18 21:26 Dose: 200 mls/hr Sodium Chloride (Ns 0.9% 1000 Ml*) 1,000 mls @ 75 mls/hr IV PER RATE [facility] Stop: 03/07/18 22:19 Last Admin: 03/07/18 05:50 Dose: 75 mls/hr Insulin Human Lispro (Humalog*) 0 units SUBCUT AC [facility]; Protocol Last Admin: 03/07/18 12:14 Dose: 6 units Ondansetron HCl (Zofran Inj*) 4 mg IV Q6H PRN PRN Reason: NAUSEA Polyethylene Glycol/Electrolytes (Miralax*) 17 gm PO DAILY PRN PRN Reason: CONSTIPATION Vital Signs - 8 hr 03/07/18 03/07/18 03/07/18 08:00 08:59 11:13 Temperature 98.8 F 97.5 F Pulse Rate 79 97 Respiratory 18 18 16 Rate Blood Pressure 154/73 132/56 (mmHg) O2 Sat by Pulse 97 97 Oximetry Oxygen Devices in Use Now: None Appearance: Patient is an 82yo female who appears stated age and is sitting in the bed in NAD. Eyes: No Scleral Icterus, PERRLA Ears/Nose/Mouth/Throat: NL Teeth, Lips, Gums, Clear Oropharnyx, Mucous Membranes Moist Neck: NL Appearance and Movements; NL JVP, Trachea Midline Respiratory: Symmetrical Chest Expansion and Respiratory Effort, Clear to Auscultation Cardiovascular: NL Sounds; No Murmurs; No JVD, RRR, - - 2+ edema in B/L LE. Abdominal: NL Sounds; No Tenderness; No Distention, No Hepatosplenomegaly Lymphatic: No Cervical Adenopathy Extremities: No Edema, No Clubbing, Cyanosis Skin: No Rash or Ulcers, No Nodules or Sclerosis Neurological: Alert and Oriented x 3, NL Sensation, NL Muscle Strength and Tone , - - CN II-XII intact. Result Diagrams: 03/07/18 11:31 03/07/18 11:31 Additional Lab and Data: Lab Results Microbiology and Other Data: Microbiology 03/06/18 15:59 Urine Culture - Final Urine No Growth (<1,000 CFU/mL) 03/06/18 03:04 Aerobic Blood Culture - Preliminary Blood Venous No Growth Day 1 Anaerobic Blood Culture - Preliminary No Growth Day 1 03/06/18 03:04 Aerobic Blood Culture - Preliminary Blood Venous No Growth Day 1 Anaerobic Blood Culture - Preliminary No Growth Day 1 Assess/Plan/Problems-Billing Assessment: Patient is an 82yo female with a PMH for CAD S/P Stenting in 2016, DM, TIA, who is here with a Mechanical fall with prolonged down-time, Slight atypical chest pain with elevated troponin and a diagnosis of UTI from an outside hospital who is improving with fluids and antibiotics. - Patient Problems (1) Sepsis Current Visit: Yes Status: Acute Comment: - Due to Urinary Tract infection - Broad spectrum antibiotics given - Tachycardia resolved - Continue fluids gently due to signs of overload. - Patient is orthostatically hypotensive. (2) UTI (urinary tract infection) Current Visit: Yes Status: Acute Comment: - Patient is asymptomatic. Patient had positive urinalysis. - Culture shows Klebsiella pneumoniae which was also present in February - Continue Ceftriaxone to which it is sensitive - Likely cause of patient's weakness and fall. PT/OT and possible rehab if needed. (3) CAD (coronary artery disease) Current Visit: No Status: Acute Code(s): I25.10 - ATHSCL HEART DISEASE OF [place] CORONARY ARTERY W/O ANG PCTRS SNOMED Code(s): 34179466 Comment: - Had 2 episodes of CP which were atypical. - Recently completed Brilinta - Slight troponin elevation. - With known CAD and troponin elevation, will get stress test when patient's sepsis resolves. - Continue Aspirin, BB, Statin - DIEGO score of 5 indicating intermediate risk. (4) DM type 2 (diabetes mellitus, type 2) Current Visit: No Status: Acute Comment: - Hemoglobin A1c 7.5. - Lispro SS with good control so far. - Resume home meds at discharge. (5) Hypertension Current Visit: Yes Status: Acute Code(s): I10 - ESSENTIAL (PRIMARY) HYPERTENSION SNOMED Code(s): 37236531 Comment: - Normotensive - Continue Atenolol and resume Losartan. (6) DVT prophylaxis Current Visit: No Status: Acute Code(s): PAC5256 - SNOMED Code(s): 473004836 Comment: - Heparin SubQ (7) Full code status Current Visit: No Status: Acute Code(s): Z78.9 - OTHER SPECIFIED HEALTH STATUS SNOMED Code(s): 919498406 Status and Disposition: Inpatient.
[2018-03-07] MEDS ORDERED: Insulin GLARGINE(*) 1 UNITS UNIT SUBCUT SCH (14:00)
[2018-03-07] MEDS ORDERED: Magnesium Sulfate 2 GM IV* 2 GM/50 ML BAG IVPB ONE (15:00)
[2018-03-07] MEDS: Atorvastatin* 80 MG TAB PO SCH (17:17)
[2018-03-07] MEDS: cefTRIAXone(*) 1 GM in NS 0.9% 50 ML* 50 ML IVPB SCH (20:52)
[2018-03-07] MEDS: Acetaminophen TAB* 325 MG PO PRN (23:30)
[2018-03-08] MEDS: Heparin VIAL(*) 5000 UNITS/ML VIAL (FIVE THOUSAND) SUBCUT SCH ×2 (06:01→13:25)
[2018-03-08] MEDS: Insulin LISPRO* 1 UNITS UNIT SUBCUT SCH ×4 (07:31→12:08)
[2018-03-08 07:54] LABS: EGFR Non-African American 106.3 (>60)
[2018-03-08] MEDS ORDERED: Magnesium Oxide TAB* 400 MG PO SCH (09:00)
[2018-03-08] MEDS: Aspirin EC TAB* 81 MG TAB.EC PO SCH (10:09)
[2018-03-08] MEDS ORDERED: Regadenoson* 0.4 MG/5 ML SYRINGE ONE (11:41)
[2018-03-08 15:46] VITALS: BP 139/69
--- NOTE | 2018-03-08 16:15 | PN ---
Subjective Date of Service: 03/08/18 Interval History: patient reports she wants to go home. She states she feels "great". Son at bedside who agrees she is at her baseline. She denies having any CP/SOB. No fevers or chills. Family History: Unchanged from Admission Social History: Unchanged from Admission Past Medical History: Unchanged from Admission Objective Active Medications: Acetaminophen (Tylenol Tab*) 650 mg PO Q4H PRN PRN Reason: FEVER/PAIN Last Admin: 03/07/18 23:30 Dose: 650 mg Aspirin (Aspirin Ec Tab*) 81 mg PO DAILY [facility] Last Admin: 03/08/18 10:09 Dose: 81 mg Atenolol (Tenormin Tab*) 50 mg PO BEDTIME [facility] Last Admin: 03/07/18 20:52 Dose: 50 mg Atorvastatin Calcium (Lipitor*) 80 mg PO 1700 [facility] Last Admin: 03/07/18 17:17 Dose: 80 mg Benzonatate (Tessalon Cap*) 100 mg PO BID PRN PRN Reason: COUGH Dextrose (D50w Syringe 50 Ml*) 12.5 gm IV PUSH .FOR FS < 60 - SS PRN PRN Reason: FS < 60 Heparin Sodium (Porcine) (Heparin Vial(*)) 5,000 units SUBCUT Q8HR [facility] Last Admin: 03/08/18 13:25 Dose: 5,000 units Ceftriaxone Sodium 1 gm/ (Sodium Chloride) 50 mls @ 200 mls/hr IVPB Q24H [facility] Last Admin: 03/07/18 20:52 Dose: 200 mls/hr Insulin Glargine (Lantus(*)) 5 units SUBCUT Q24H [facility] Last Admin: 03/07/18 15:02 Dose: 5 units Insulin Human Lispro (Humalog*) 0 units SUBCUT AC [facility]; Protocol Last Admin: 03/08/18 12:08 Dose: Not Given Insulin Human Lispro (Humalog*) 3 units SUBCUT [facility] Last Admin: 03/08/18 12:08 Dose: Not Given Magnesium Oxide (Magox 400 Tab*) 800 mg PO DAILY [facility] Last Admin: 03/08/18 10:09 Dose: 800 mg Ondansetron HCl (Zofran Inj*) 4 mg IV Q6H PRN PRN Reason: NAUSEA Polyethylene Glycol/Electrolytes (Miralax*) 17 gm PO DAILY PRN PRN Reason: CONSTIPATION Vital Signs - 8 hr 03/08/18 03/08/18 11:21 15:11 Temperature 98.7 F 98.6 F Pulse Rate 84 87 Respiratory 18 14 Rate Blood Pressure 139/58 139/69 (mmHg) O2 Sat by Pulse 95 96 Oximetry Oxygen Devices in Use Now: None Appearance: 82 yo female sitting up in a chair in NAD. A+O x3 Eyes: No Scleral Icterus, PERRLA Ears/Nose/Mouth/Throat: NL Teeth, Lips, Gums, Mucous Membranes Moist Neck: NL Appearance and Movements; NL JVP Respiratory: Symmetrical Chest Expansion and Respiratory Effort, Clear to Auscultation Cardiovascular: NL Sounds; No Murmurs; No JVD, RRR, No Edema Abdominal: NL Sounds; No Tenderness; No Distention Lymphatic: No Cervical Adenopathy Extremities: No Edema, No Clubbing, Cyanosis Skin: No Rash or Ulcers, No Nodules or Sclerosis Neurological: Alert and Oriented x 3, NL Sensation, NL Muscle Strength and Tone Lines/Tubes/Other Access: Clean, Dry and Intact Peripheral IV Nutrition: Taking PO's Result Diagrams: 03/07/18 11:31 03/08/18 06:57 Additional Lab and Data: Lab Results Microbiology and Other Data: Microbiology 03/06/18 15:59 Urine Culture - Final Urine No Growth (<1,000 CFU/mL) 03/06/18 03:04 Aerobic Blood Culture - Preliminary Blood Venous No Growth Day 1 Anaerobic Blood Culture - Preliminary No Growth Day 1 03/06/18 03:04 Aerobic Blood Culture - Preliminary Blood Venous No Growth Day 1 Anaerobic Blood Culture - Preliminary No Growth Day 1 Assess/Plan/Problems-Billing Assessment: Patient is an 82yo female with a PMH for CAD S/P Stenting in 2017, DM, TIA, who is here with a Mechanical fall with prolonged down-time, Slight atypical chest pain with elevated troponin and a diagnosis of UTI from an outside hospital who is improving with fluids and antibiotics. - Patient Problems (1) Sepsis Comment: - Resolved - Due to Urinary Tract infection - Broad spectrum antibiotics given - Tachycardia resolved - Patient is orthostatically hypotensive. (2) UTI (urinary tract infection) Comment: - Patient had positive urinalysis and WBC 23K at [place]. Culture showing Klebsiella pneumoniae which was also present in February - colony count is low but she did get a dose of abx in [place] ER. Blood cx negative. No other source of obvious infx. Leukocytosis resolved. - DC Ceftriaxone - send home with 3 day course of bactrim - Likely cause of patient's weakness and fall. - PT eval - she had no PT needs (3) Hypertension Comment: - Normotensive - Continue Atenolol and resume Losartan. (4) CAD (coronary artery disease) Comment: - Recently completed Brilinta - Slight troponin elevation suspect demand ischemia. - Nuclear Stress test today showing Findings suggestive of a small to moderate size area of ischemia in the anteroseptal wall. discussed with cardiology who reviewed the images stating it is an normal image. - Continue Aspirin, BB, Statin - follow up with primary cardiolgist Dr. Chua (5) DM type 2 (diabetes mellitus, type 2) Comment: - Hemoglobin A1c 7.5. - Lispro SS with good control so far. - Resume home meds at discharge. (6) DVT prophylaxis Comment: - Heparin SubQ (7) Full code status Status and Disposition: Inpatient. stable for DC home.
[2018-03-08] MEDS ORDERED: Magnesium Sulfate 1 GM IV* 1 GM/100 ML BAG IV ONE (16:20)
--- NOTE | 2018-03-09 20:44 | DS ---
DISCHARGE SUMMARY: DATE OF ADMISSION: 03/06/18 DATE OF DISCHARGE: 03/08/18 PROVIDER: Chandrika Loving NP ATTENDING PHYSICIAN: Dr. Ring * (report dictated by Maikol Loving NP). PRIMARY CARE PROVIDER: Ilir Bone. DROP TESTER: Dr. Chua. DISCHARGE DIAGNOSES: 1. Urinary tract infection. 2. Elevated troponin suspect secondary to demand ischemia. 3. Hypomagnesium. SECONDARY DIAGNOSES: 1. History of cervical cancer. 2. History of coronary artery disease. 3. Hypertension. 4. Hyperlipidemia. 5. Tsv-[id number]-kouuybylm type 2 diabetes. 6. History of transient ischemic attack. HISTORY OF PRESENT ILLNESS AND HOSPITAL COURSE: Please see history and physical by Nikhil Pettit NP for full admission details; but in summary, this is an 82-year- old female who was at home when she reports around 2 o'clock in the afternoon, she noticed there was garbage spread out on her porch thinking that some animals may have gotten into it. She went to parts picker the garbage and was leaning down and fell forward landing on her face and on her chest breaking her fall with her right leg and right arm. She denies losing consciousness. She reports she hit her chest and landed on her stomach. Unfortunately, she tried pressing her Life Alert, but it was not setup appropriately, therefore, it did not work and she laid on her chest for about 4 hours until her son found her. He was able to get her up and she was able to use a rolling walker reporting she did not have any pain, but scraped her right elbow and her right knee. She then had a sharp quick jolt of pain in her chest only lasting seconds. She denied any associated symptoms such as nausea, shortness of breath or diaphoresis. Her son brought her to the emergency department for further evaluation. In the emergency department, she was found to have an elevated white blood cell count of 16.5 and a urinalysis that showed positive leukocyte esterase and white blood cells. It was thought initially on admission that she possibly had mild sepsis secondary to urinary tract infection and was started on ceftriaxone. She was given IV fluids. Her urine culture did have no growth as well as negative blood cultures. She was treated with 3 days of ceftriaxone. I suspect that possibly, she did not have sepsis on admission and just had an elevated white blood cell count possibly stress induced. She had no noted leukocytosis. On admission, the patient's troponin was 0.18. She was admitted to the hospitalist service on telemetry with her troponins trended, which trended down on her admission at that point. She had no EKG changes. She was noted to have a magnesium on admission of 1.3 and has been given IV magnesium supplementation and has been sent home on magnesium supplementation. The patient underwent a cardiac nuclear stress test in which the radiologist read the impression stated "findings suggestive of a small to moderate size of area of ischemia in the anterior septal wall," placing her at intermediate risk. I spoke to mat sewer, Dr. Woodruff, who looked at the imaging who stated normal exam, most likely skewed by her breast tissue. The patient has not had any further chest pain throughout her hospitalization. She has no signs of sepsis or infection and has been asymptomatic to the potential urinary tract infection. I suspect the patient just lost her balance and fell forward. She was seen by Physical Therapy, who states that she is ambulating well and has no physical therapy needs at this time. Her son is at the bedside, who agrees the plan of care that she is at her baseline and she is ready for discharge to home. The patient is found to be very independent in the hospital, able to get herself out of the chair, ambulate with a walker to the bathroom in which she reports is her baseline. She appears to be stable on her feet and stable for discharge to home. DISCHARGE MEDICATIONS: 1. Norvasc 5 mg p.o. daily. 2. Atenolol 50 mg p.o. at bedtime. 3. Aspirin 81 mg p.o. daily. 4. Lipitor 80 mg p.o. q.a.m. 5. Metformin 1000 mg p.o. b.i.d. 6. Januvia 100 mg p.o. q.a.m. 7. Losartan 50 mg p.o. q.a.m. 8. Magnesium glycinate 400 mg p.o. daily. New: Bactrim DS 800/160 mg p.o. b.i.d. x3 doses (please note the patient was discharged prior to the urine culture resulting as negative, I have called and left a message for the patient to discontinue the antibiotic). DISCHARGE PLAN: 1. Follow up with primary care provider, Dr. Fay, in [place] in 1 to 3 days. 2. Follow up with Dr. Chua, mat sewer. 3. Return with any concerning or worsening symptoms. TIME SPENT: Approximately 60 minutes were spent on this discharge. CHANDRIKA LOVING, [place] [id number]/CPS #: [id number] ENRI[place]ET[place]
== END 2018-03-08 18:57 | disposition home or self-care (01) | DRG 872 ==
LOC: ED → MEDTELE 02:39
PROVIDERS: ADMIT Internal Medicine; ATTEND Internal Medicine
DX: A41.9 Sepsis, unspecified organism (principal); N39.0 Urinary tract infection, site not specified; I24.8 Other forms of acute ischemic heart disease; E83.42 Hypomagnesemia; I11.9 Hypertensive heart disease without heart failure; E11.9 Type 2 diabetes mellitus without complications; I45.10 Unspecified right bundle-branch block; R74.8 Abnormal levels of other serum enzymes; E87.6 Hypokalemia; E78.5 Hyperlipidemia, unspecified; I25.10 Atherosclerotic heart disease of native coronary artery without angina pectoris; R00.0 Tachycardia, unspecified; Z79.84 Long term (current) use of oral hypoglycemic drugs; Z86.73 Personal history of transient ischemic attack (TIA), and cerebral infarction without residual deficits; Z85.41 Personal history of malignant neoplasm of cervix uteri; W18.30XA Fall on same level, unspecified, initial encounter; Y92.008 Other place in unspecified non-institutional (private) residence as the place of occurrence of the external cause; Z79.01 Long term (current) use of anticoagulants; Z79.82 Long term (current) use of aspirin; Z79.899 Other long term (current) drug therapy; Z88.0 Allergy status to penicillin; Z82.49 Family history of ischemic heart disease and other diseases of the circulatory system; B96.1 Klebsiella pneumoniae [K. pneumoniae] as the cause of diseases classified elsewhere
CPT/HCPCS: 36415; 71275; 74177; 78452; 80048; 80053; 80061; 81003; 81015; 82550; 83036; 83605; 83735; 83880; 84484; 85025; 85610; 85730; 87040; 87086; 93005; 93017; 93306; 99285; A9270-GY; A9505; G8978-GP-CI; G8979-GP-CH; G8979-GP-CI; G8980-GP-CI; G8987-GO-CI; G8988-GO-CI; G8989-GO-CI; J0696; J1644; J2785; J3475; J3480; Q9967